=== PATIENT | male | born 1935 | race Caucasian/White ===

== ENCOUNTER → 2020-08-29 | Outpatient (CLI) | payer MEDICARE, OTHER ==
[2020-08-29 12:15] LABS: African American GFR (CKD) >90 (>60 ml/min/1.73 sqM); Blood Urea Nitrogen 22 mg/dL (9-20); Non-African American GFR(CKD) 84 (>60 ml/min/1.73 sqM)
--- NOTE | 2020-08-29 14:34 | CT ---
EXAMINATION TYPE: CT abdomen pelvis w con DATE OF EXAM: 08/29/2020 COMPARISON: None. HISTORY: follow up prostate cancer CT DLP: 355.4 mGycm, Automated Exposure Control for Dose Reduction was Utilized. CONTRAST: CT scan of the abdomen and pelvis is performed with oral and with IV Contrast, patient injected with 100 mL of Isovue 300. FINDINGS: LUNG BASES: Cardiomegaly with dual lead pacemaker is partially imaged. There is moderate right atrial dilatation partially imaged.. LIVER/GB: Occasional punctate calcification and thin-walled cysts scattered throughout the liver. PANCREAS: Generalized atrophy with glandular calcifications consistent with product of chronic pancre atitis. SPLEEN: Scattered punctate calcifications throughout the spleen as well as 1.9 cm thin-walled partial ly exophytic cyst lateral upper aspect of spleen. ADRENALS: No significant abnormality is seen. KIDNEYS: Symmetric cortical medullary uptake and excretion without hydronephrosis seen bilaterally. BOWEL: Large hiatal hernia or fixed intrathoracic stomach partially imaged. Oral contrast reaches lev el of the ileal loops in the right abdomen. Small bowel feces sign. No suspicious small bowel dilatat ion to suggest obstruction. Fecal material seen in nondistended colon. PROSTATE/SEMINAL VESICLES: There are 3 gold therapy seeds scattered throughout prostate gland which i s normal in size. LYMPH NODES: No greater than 1cm abdominal or pelvic lymph nodes are appreciated. OSSEOUS STRUCTURES: Metallic artifact from left hip arthroplasty causes streak artifact limiting eval uation of pelvic structures. Grade 1 retrolisthesis L5 on S1. Moderate to severe disc space narrowing with sclerosis and spurring left L5-S1 level. Vacuum disc phenomenon at this level. Grade 1 anteroli sthesis L4 on L5 with mild disc space narrowing and vacuum disc phenomenon. There are 2 suspicious sc lerotic lesions in the L1 vertebra and single lesion in the left inferior T12 vertebra . There are a dditional scattered small sclerotic lesions throughout the pelvis including sacrum where there is mor e diffuse sclerotic lesions present as well as left iliac bone where there are several sclerotic foci of sclerotic areas present. There is sclerosis consistent with subacute mild to moderate compression type fracture involving the superior T11 endplate. OTHER: Mild to moderate mixed plaque in aorta extends into branch vessels. IMPRESSION: Osseous sclerotic metastatic disease as detailed above. Suspect subacute or healing compr ession type fracture T11 vertebra. No suspicious mass or adenopathy otherwise seen.
--- NOTE | 2020-08-29 22:10 | NM ---
EXAMINATION TYPE: NM bone scan whole body DATE OF EXAM: 08/29/2020 COMPARISON: CT abdomen and pelvis earlier today. HISTORY: Prostate cancer. Delayed whole-body scanning was performed following the injection of 22.1 mCi Tc 99m MDP. Images acq uired 3 hours post injection. Whole body images in anterior and posterior projection along with addit ional spot images of the thorax abdomen and pelvis. FINDINGS: Corresponding to CT there is increased radiotracer uptake in the left iliac bone corresponding to the dominant sclerotic area near sacroiliac joint. Smaller sclerotic foci on CT less well seen on bone s can. There is horizontal increased radiotracer uptake corresponding to the subacute mild to moderate compr ession type fracture at the T11 vertebra. Subtle increased radiotracer uptake right L3 level correspo nds to larger lateral sclerotic lesion on image 56. Smaller sclerotic lesion on CT less well seen on bone scan. There is lucency from left hip prosthesis noted. Increased radiotracer uptake left roughly T3 level l ikely corresponds to sclerotic osseous metastatic lesion. Normal excretion bilaterally. IMPRESSION: Sclerotic osseous metastatic disease as detailed above.
== END | disposition home or self-care (01) ==
LOC: RADNMMAIN 11:24
PROVIDERS: ATTEND Urology
DX: C61 Malignant neoplasm of prostate (principal); C79.51 Secondary malignant neoplasm of bone; Z88.0 Allergy status to penicillin
CPT/HCPCS: 82565; 84520; 74177; 36415; 78306; A9503; Q9967

== ENCOUNTER 2020-10-14 20:50 | Inpatient (IN) | payer MEDICARE, OTHER ==
[2020-10-14] MEDS ORDERED: ASPIRIN 81 MG PO STA (21:16)
[2020-10-14 21:24] LABS: Basophils % (A) 1 %; Eosinophils # (A) 0.3 k/uL (0-0.7); Eosinophils % (A) 7 %; HGB 13.1 gm/dL (13.0-17.5); Lymphocytes % (A) 22 %; MCH 35.5 pg (25.0-35.0); MCHC 33.6 g/dL (31.0-37.0); MCV 105.8 fL (80.0-100.0); Macrocytosis Moderate; Mean Platelet Volume 7.3; Monocytes # (A) 0.4 k/uL (0-1.0); Monocytes % (A) 10 %; Neutrophils # (A) 2.5 k/uL (1.3-7.7); Neutrophils % (A) 57 %; Platelet Count 269 k/uL (150-450); RBC 3.69 m/uL (4.30-5.90); RDW 14.3 % (11.5-15.5); WBC 4.4 k/uL (3.8-10.6)
[2020-10-14 21:32] LABS: Partial Thromboplastin Time 23.7 sec (22.0-30.0); Prothrombin Time 10.4 sec (9.0-12.0)
[2020-10-14 21:34] LABS: ALT 15 U/L (4-49); AST 33 U/L (17-59); African American GFR (CKD) >90 (>60 ml/min/1.73 sqM); Albumin 3.6 g/dL (3.5-5.0); Alkaline Phosphatase 106 U/L (38-126); Anion Gap 9 mmol/L; Blood Urea Nitrogen 38 mg/dL (9-20); Calcium 9.5 mg/dL (8.4-10.2); Carbon Dioxide 22 mmol/L (22-30); Chloride 104 mmol/L (98-107); Glucose 107 mg/dL (74-99); Lipase 40 U/L (23-300); Magnesium 1.7 mg/dL (1.6-2.3); Non-African American GFR(CKD) 83 (>60 ml/min/1.73 sqM); Potassium 4.6 mmol/L (3.5-5.1); Sodium 135 mmol/L (137-145); Total Bilirubin 0.2 mg/dL (0.2-1.3); Total Protein 6.8 g/dL (6.3-8.2)
--- NOTE | 2020-10-14 21:51 | XR ---
EXAMINATION TYPE: XR chest 2V DATE OF EXAM: 10/14/2020 COMPARISON: 05/05/2014. HISTORY: Chest pain. TECHNIQUE: Frontal and lateral views of the chest are obtained. FINDINGS: There is no focal air space opacity, pleural effusion, or pneumothorax seen. The cardiac silhouette size is enlarged. Left pacemaker is stable. No acute abnormality. Chronic appearing lower thoracic spine compression deformity seen. IMPRESSION: No acute cardiopulmonary process.
--- NOTE | 2020-10-14 22:07 | ED ---
General Adult HPI - General Chief complaint: Chest Pain Stated complaint: Chest pain Time Seen by Provider: 10/14/20 20:59 Source: patient Mode of arrival: wheelchair Limitations: no limitations - History of Present Illness Initial comments: 84 year-old male patient presents to the emergency department accompanied by caregiver for chest pain. Chest pain started around 6pm. Resolved after 1.5 hours. Denies any associated symptoms including shortness of breath, sweats, nausea, or vomiting. States he did have some pain and tenderness to the left axilla. He denies any cough or congestion. Does have a ventricular pace maker. Denies history of [place]. Does take Eliquis 2.5mg BID. Patient denies any recent fever, chills, cough, abdominal pain, diarrhea, constipation, back pain, numbness, tingling, dizziness, weakness, hematuria, dysuria, urinary urgency, urinary frequency, headache, visual changes, or any other complaints. - Related Data Home Medications Medication Instructions Recorded Confirmed Furosemide [Lasix] 40 mg PO DAILY 02/01/14 05/04/14 Warfarin [Coumadin] 2.5 tab PO W/SUPPER 02/01/14 05/04/14 carvediloL [Coreg] 3.125 tab PO BID 02/01/14 05/04/14 lisinopriL [Zestril] 10 mg PO DAILY 02/01/14 05/04/14 Prilosec(Dose Unknown) 1 tab PO DAILY 04/30/14 05/04/14 NIFEdipine [NIFEdipine XL] 30 mg PO DAILY 05/04/14 05/04/14 Allergies Allergy/AdvReac Type Severity Reaction Status Date / Time Penicillins Allergy Unknown Verified 10/14/20 20:57 Review of Systems ROS Statement: Those systems with pertinent positive or pertinent negative responses have been documented in the HPI. ROS Other: All systems not noted in ROS Statement are negative. Past Medical History Past Medical History: Cancer, GERD/Reflux, Osteoarthritis (OA), Pneumonia Additional Past Medical History / Comment(s): see Dr Robertson H&P, hx prostate and skin cancer, pneumonia 02/2014 History of Any Multi-Drug Resistant Organisms: None Reported Past Surgical History: Hernia Repair, Pacemaker, Prostate Surgery Past Anesthesia/Blood Transfusion Reactions: No Reported Reaction Additional Past Anesthesia/Blood Transfusion Reaction / Comment(s): unknown family hx from child caregiver Type of Cardiac Device: Permanent Pacemaker Device Placement Date:: unknown Past Psychological History: No Psychological Hx Reported Smoking Status: Never smoker Past Alcohol Use History: None Reported Past Drug Use History: None Reported General Exam Limitations: no limitations General appearance: alert, in no apparent distress, other (Physical well- developed, well-nourished adult male patient in no acute distress. Vital signs upon presentation temperature 97.4F, pulse 89, respirations 20, blood pressure 144/76, pulse ox 95% on room air.) ENT exam: Present: normal exam, normal oropharynx, mucous membranes moist Respiratory exam: Present: normal lung sounds bilaterally. Absent: respiratory distress, wheezes, rales, rhonchi, stridor Cardiovascular Exam: Present: regular rate, normal rhythm, normal heart sounds. Absent: systolic murmur, diastolic murmur, rubs, gallop, clicks GI/Abdominal exam: Present: soft, normal bowel sounds. Absent: distended, tenderness, guarding, rebound, rigid Neurological exam: Present: alert, oriented X3, CN II-XII intact Psychiatric exam: Present: normal affect, normal mood Skin exam: Present: warm, dry, intact, normal color. Absent: rash Course Vital Signs 10/14/20 20:52 Temperature 97.4 F L Pulse Rate 89 Respiratory 20 Rate Blood Pressure 144/76 O2 Sat by Pulse 95 Oximetry EKG Findings - EKG Comments: EKG Findings:: EKG obtained at 2105 shows ventricular paced rhythm at the rate of 68, QR yarsanism 158, QTC 464, QTC 493. No evidence of clinically significant ST elevation or depression. Medical Decision Making - Medical Decision Making 84-year-old male patient presents to the emergency department today for evaluation of left-sided chest pain lasted about an hour and a half at home. No associated symptoms. EKG showed ventricular paced rhythm with no clinical significant ST elevation or depression. Labs reviewed and did reveal elevated t roponin 0.052. Patient was given a dose of aspirin here. He does take Eliquis. He'll be admitted to the hospital for serial troponins and further evaluation by cardiology. Nothing by mouth at midnight. Patient agreeable with this plan. Discuss with my attending Dr. Stiles. - Lab Data Result diagrams: 10/14/20 21:16 10/14/20 21:16 Lab Results 07/10/14/20 10/14/20 Range/Units 21:16 21:16 21:16 WBC 4.4 (3.8-10.6) k/uL RBC 3.69 L (4.30-5.90) m/uL Hgb 13.1 (13.0-17.5) gm/dL Hct 39.0 (39.0-53.0) % MCV 105.8 H (80.0-100.0) fL MCH 35.5 H (25.0-35.0) pg MCHC 33.6 (31.0-37.0) g/dL RDW 14.3 (11.5-15.5) % Plt Count 269 (150-450) k/uL MPV 7.3 Neutrophils % 57 % Lymphocytes % 22 % Monocytes % 10 % Eosinophils % 7 % Basophils % 1 % Neutrophils # 2.5 (1.3-7.7) k/uL Lymphocytes # 1.0 (1.0-4.8) k/uL Monocytes # 0.4 (0-1.0) k/uL Eosinophils # 0.3 (0-0.7) k/uL Basophils # 0.0 (0-0.2) k/uL Macrocytosis Moderate PT 10.4 (9.0-12.0) sec INR 1.0 (<1.2) APTT 23.7 (22.0-30.0) sec Sodium 135 L (137-145) mmol/L Potassium 4.6 (3.5-5.1) mmol/L Chloride 104 (98-107) mmol/L Carbon Dioxide 22 (22-30) mmol/L Anion Gap 9 mmol/L BUN 38 H (9-20) mg/dL Creatinine 0.76 (0.66-1.25) mg/dL Est GFR (CKD-EPI)AfAm >90 (>60 ml/min/1.73 sqM) Est GFR (CKD-EPI)NonAf 83 (>60 ml/min/1.73 sqM) Glucose 107 H (74-99) mg/dL Calcium 9.5 (8.4-10.2) mg/dL Magnesium 1.7 (1.6-2.3) mg/dL Total Bilirubin 0.2 (0.2-1.3) mg/dL AST 33 (17-59) U/L ALT 15 (4-49) U/L Alkaline Phosphatase 106 (38-126) U/L Troponin I (0.000-0.034) ng/mL Total Protein 6.8 (6.3-8.2) g/dL Albumin 3.6 (3.5-5.0) g/dL Lipase 40 (23-300) U/L 10/14/20 Range/Units 21:16 WBC (3.8-10.6) k/uL RBC (4.30-5.90) m/uL Hgb (13.0-17.5) gm/dL Hct (39.0-53.0) % MCV (80.0-100.0) fL MCH (25.0-35.0) pg MCHC (31.0-37.0) g/dL RDW (11.5-15.5) % Plt Count (150-450) k/uL MPV Neutrophils % % Lymphocytes % % Monocytes % % Eosinophils % % Basophils % % Neutrophils # (1.3-7.7) k/uL Lymphocytes # (1.0-4.8) k/uL Monocytes # (0-1.0) k/uL Eosinophils # (0-0.7) k/uL Basophils # (0-0.2) k/uL Macrocytosis PT (9.0-12.0) sec INR (<1.2) APTT (22.0-30.0) sec Sodium (137-145) mmol/L Potassium (3.5-5.1) mmol/L Chloride (98-107) mmol/L Carbon Dioxide (22-30) mmol/L Anion Gap mmol/L BUN (9-20) mg/dL Creatinine (0.66-1.25) mg/dL Est GFR (CKD-EPI)AfAm (>60 ml/min/1.73 sqM) Est GFR (CKD-EPI)NonAf (>60 ml/min/1.73 sqM) Glucose (74-99) mg/dL Calcium (8.4-10.2) mg/dL Magnesium (1.6-2.3) mg/dL Total Bilirubin (0.2-1.3) mg/dL AST (17-59) U/L ALT (4-49) U/L Alkaline Phosphatase (38-126) U/L Troponin I 0.052 H* (0.000-0.034) ng/mL Total Protein (6.3-8.2) g/dL Albumin (3.5-5.0) g/dL Lipase (23-300) U/L - Radiology Data Radiology results: report reviewed, image reviewed Two-view x-ray of the chest is obtained. Report was reviewed in its entirety. Impression by Dr. Melgar shows no acute cardiopulmonary process. Disposition Clinical Impression: NSTEMI (non-ST elevated myocardial infarction) Disposition: ADMITTED IP TO THIS [facility] Condition: Serious Referrals: Levon Ching MD [Primary Care Provider] - 1-2 days Decision to Admit Reason: Admit from EC Decision Date: 10/14/20 Decision Time: 22:18
[2020-10-14] MEDS ORDERED: NITROGLYCERIN SL TABS 0.4 MG TAB SUBLINGUAL PRN (22:16)
[2020-10-14] MEDS ORDERED: ACETAMINOPHEN TAB 500 MG TAB PO PRN (23:17)
[2020-10-14] MEDS: METOPROLOL TARTRATE 12.5 MG TAB PO SCH (23:52)
[2020-10-14] MEDS: ATORVASTATIN 40 MG TAB PO SCH (23:53)
[2020-10-14] MEDS: APIXABAN 2.5 MG TABLET PO SCH (23:53)
[2020-10-14] MEDS: carvediloL 3.125 MG TAB PO SCH (23:53)
[2020-10-15 05:54] LABS: ALT 14 U/L (4-49); AST 33 U/L (17-59); African American GFR (CKD) >90 (>60 ml/min/1.73 sqM); Albumin 3.2 g/dL (3.5-5.0); Alkaline Phosphatase 107 U/L (38-126); Anion Gap 6 mmol/L; Blood Urea Nitrogen 32 mg/dL (9-20); Calcium 9.2 mg/dL (8.4-10.2); Carbon Dioxide 24 mmol/L (22-30); Chloride 106 mmol/L (98-107); Glucose 94 mg/dL (74-99); Non-African American GFR(CKD) >90 (>60 ml/min/1.73 sqM); Potassium 4.3 mmol/L (3.5-5.1); Sodium 136 mmol/L (137-145); Total Bilirubin 0.2 mg/dL (0.2-1.3); Total Protein 6.4 g/dL (6.3-8.2)
[2020-10-15 06:05] LABS: Basophils % (A) 1 %; Eosinophils # (A) 0.3 k/uL (0-0.7); Eosinophils % (A) 6 %; HCT 39.4 % (39.0-53.0); HGB 12.9 gm/dL (13.0-17.5); Lymphocytes # (A) 1.1 k/uL (1.0-4.8); Lymphocytes % (A) 24 %; MCH 35.1 pg (25.0-35.0); MCHC 32.8 g/dL (31.0-37.0); MCV 106.9 fL (80.0-100.0); Macrocytosis Moderate; Mean Platelet Volume 7.6; Monocytes # (A) 0.4 k/uL (0-1.0); Monocytes % (A) 10 %; Neutrophils # (A) 2.6 k/uL (1.3-7.7); Neutrophils % (A) 57 %; Platelet Count 216 k/uL (150-450); RBC 3.68 m/uL (4.30-5.90); RDW 13.2 % (11.5-15.5); WBC 4.5 k/uL (3.8-10.6)
[2020-10-15] MEDS ORDERED: ASPIRIN 325 MG TAB PO SCH (09:00)
[2020-10-15] MEDS: CALCIUM CARB-VIT D 500 MG-5 MCG TAB PO SCH (09:08)
[2020-10-15] MEDS: METOPROLOL TARTRATE 12.5 MG TAB PO SCH (09:08)
[2020-10-15] MEDS: FUROSEMIDE 20 MG TAB PO SCH (09:08)
[2020-10-15] MEDS: ISOSORBIDE MONONITRATE ER 30 MG TAB.ER.24H PO SCH (09:08)
[2020-10-15] MEDS: diphenhydrAMINE 25 MG CAP PO SCH ×2 (09:08→21:09)
[2020-10-15] MEDS: lisinopriL 10 MG TAB PO SCH (09:08)
[2020-10-15] MEDS: FERROUS SULFATE 325 MG TAB PO SCH ×2 (09:09→21:09)
[2020-10-15] MEDS: ASPIRIN 81 MG PO SCH (09:09)
[2020-10-15] MEDS: NON FORMULARY DRUG (Enzalutamide [Xtandi] 40 MG Capsule) PO SCH ×4 (09:09→21:13)
[2020-10-15] MEDS: OXYBUTYNIN CHLORIDE 5 MG TAB PO SCH ×2 (09:09→21:09)
[2020-10-15] MEDS: APIXABAN 2.5 MG TABLET PO SCH ×2 (09:09→21:09)
[2020-10-15] MEDS: MULTIVITAMINS, THERA 1 EACH TAB PO SCH (09:09)
[2020-10-15] MEDS: carvediloL 3.125 MG TAB PO SCH ×2 (09:09→21:09)
[2020-10-15] MEDS: CLOPIDOGREL 75 MG TAB PO SCH (09:09)
[2020-10-15 10:21] LABS: Chol/HDL Ratio 3.26; Cholesterol 124 mg/dL (0-200)
--- NOTE | 2020-10-15 12:54 | P.CRDCN ---
History of Present Illness History of present illness: HISTORY OF PRESENTING ILLNESS Patient is a pleasant 84-year-old male with history of hypertension, hyperlipidemia, atrial flutter status post ablation, complete heart block status post dual-chamber permament pacemaker as well as His bundle pacing, and reported CAD status post 3 stents who presents secondary chest pain. Patient states he lives with a caregiver however is normally fairly functional. He normally follows with Dr. Arguello and states he had been doing fairly well up until y when he had a few hours of chest pain. Chest pain occurred while he was sitting and not doing anything. It lasted for approximately 2 hours and then resolved. Apparently was gone by the time he reached the emergency department. He denies any associated nausea, diaphoresis or shortness breath. He has had no recurrence. He has not taken any nitroglycerin for this. He believes he had 3 stents placed down in [place] approximately 2-3 years ago. He has been on the Eliquis as well as Plavix without any hematochezia or melena. He does have some mild issues with recall however for the most part is able to describe his medical history. Blood work shows white blood cell count 4.4, h emoglobin 13.1, platelets 269, troponin 0.05, 0.06, 0.048, BUN 38, creatinine 0.76, total cholesterol 124, LDL 64, HDL 38. EKG shows ventricular paced rhythm with atrial sensed. REVIEW OF SYSTEMS At the time of my exam: CONSTITUTIONAL: Denies fever or chills. CARDIOVASCULAR: +chest pain, no shortness of breath, orthopnea, PND or palpitations. RESPIRATORY: Denies cough. GASTROINTESTINAL: Denies abdominal pain, diarrhea, constipation, nausea or vomiting. MUSCULOSKELETAL: Denies myalgias. NEUROLOGIC: Denies numbness, tingling or weakness. ENDOCRINE: Denies fatigue, weight change, polydipsia or polyurina. GENITOURINARY: Denies burning, hematuria or urgency with micturation. HEMATOLOGIC: Denies history of anemia or bleeding. PHYSICAL EXAMINATION Vital signs reviewed. CONSTITUTIONAL: No apparent distress. HEENT: Head is normocephalic. Pupils are equal, round. Sclerae anicteric. Mucous membranes of the mouth are moist. No JVD. No carotid bruit. CHEST EXAMINATION: Lungs are clear to auscultation. No chest wall tenderness is noted on palpation or with deep breathing. HEART EXAMINATION: Regular rate and rhythm. S1, S2 heard. No murmurs, gallops or rub. ABDOMEN: Soft, nontender. Positive bowel sounds. EXTREMITIES: 2+ peripheral pulses, no lower extremity edema and no calf tendern ess. NEUROLOGIC EXAMINATION: Patient is awake, alert ASSESSMENT 1. Chest pain with elevated troponins. Rule out non-STEMI versus chronically elevated troponins 2. Reported coronary artery disease status post stenting approximately 3 years ago in [place] 3. Essential hypertension 4. History of atrial flutter status post ablation, atrial fibrillation on anticoagulation 5. Sick sinus syndrome status post dual-chamber permanent pacemaker, his bundle placing 6. Mild anemia 7. Mild dementia PLAN We will obtain records from office to evaluate prior history of CAD. Patient's chest pain is not classic however he admits to similar prior episodes with prior stenting approximately 2-3 years ago. Additionally blood work shows mildly elevated troponins. We will check 2-D echo to evaluate for left ventricular function. Discussed possible medical therapy versus ischemic workup and patient would like to get to the vomitus as he had been doing fairly well. We will check a Lexiscan stress test to further risk stratify on Saturday. Past Medical History Past Medical History: Cancer, Heart Failure, GERD/Reflux, Osteoarthritis (OA), Pneumonia Additional Past Medical History / Comment(s): see Dr Robertson H&P, hx prostate and skin cancer, pneumonia 02/2014 History of Any Multi-Drug Resistant Organisms: None Reported Past Surgical History: Hernia Repair, Pacemaker, Prostate Surgery Past Anesthesia/Blood Transfusion Reactions: No Reported Reaction Additional Past Anesthesia/Blood Transfusion Reaction / Comment(s): unknown family hx from care management assistant Type of Cardiac Device: Permanent Pacemaker Device Placement Date:: unknown Past Psychological History: No Psychological Hx Reported Smoking Status: Never smoker Past Alcohol Use History: None Reported Past Drug Use History: None Reported Medications and Allergies Home Medications Medication Instructions Recorded Confirmed Type carvediloL [Coreg] 3.125 tab PO BID 02/01/14 10/14/20 History lisinopriL [Zestril] 10 mg PO DAILY 02/01/14 10/14/20 History Acetaminophen Tab [Tylenol Tab] 500 mg PO Q6H PRN 10/14/20 10/14/20 History Albuterol Sulfate [Ventolin HFA] 1 - 2 puff INHALATION RT-Q6H PRN 10/14/20 10/14/20 History Apixaban [Eliquis] 2.5 mg PO BID 10/14/20 10/14/20 History Aspirin EC [Ecotrin Low Dose] 81 mg PO DAILY 10/14/20 10/14/20 History Atorvastatin Calcium [Lipitor] 40 mg PO HS 10/14/20 10/14/20 History Bebeto/D3/Mag11/Zinc/Stopperer Assembler/Kaleb/Bor 1 tab PO DAILY 10/14/20 10/14/20 History [Caltrate 600+D Plus Tablet] Clopidogrel [Plavix] 75 mg PO DAILY 10/14/20 10/14/20 History Enzalutamide [Xtandi] 40 mg PO QID 10/14/20 10/14/20 History Ferrous Sulfate [Feosol] 325 mg PO BID 10/14/20 10/14/20 History Furosemide [Lasix] 20 mg PO DAILY 10/14/20 10/14/20 History Isosorbide Mononitrate ER [Imdur] 30 mg PO DAILY 10/14/20 10/14/20 History Metoprolol Tartrate [Lopressor] 12.5 mg PO BID 10/14/20 10/14/20 History Multivitamins, Thera [Multivitamin 1 tab PO DAILY 10/14/20 10/14/20 History (formulary)] Oxybutynin Chloride 2.5 mg PO BID 10/14/20 10/14/20 History diphenhydrAMINE [Benadryl] 25 mg PO BID 10/14/20 10/14/20 History Allergies Allergy/AdvReac Type Severity Reaction Status Date / Time Penicillins Allergy Unknown Verified 10/14/20 20:57 Physical Exam Vitals: Vital Signs Temp Pulse Pulse Resp BP BP Pulse Ox 10/15/20 08:00 98.0 F 61 18 146/75 96 10/15/20 04:00 97.7 F 68 16 144/76 98 10/14/20 23:55 98.7 F 60 16 165/82 97 10/14/20 22:29 61 18 150/82 96 10/14/20 22:24 98.7 F 60 18 161/81 98 10/14/20 20:52 97.4 F L 89 20 144/76 95 Intake and Output 10/14/20 10/15/20 10/15/20 22:59 06:59 14:59 Output Total 100 Balance -100 Output: Urine 100 Other: Voiding Method Urinal Urinal # Voids 1 Weight 57.153 kg 57 kg Results 10/15/20 05:27 10/15/20 05:27 Cardiac Enzymes 10/14/20 10/14/20 10/15/20 Range/Units 21:16 21:16 00:36 AST 33 (17-59) U/L Troponin I 0.052 H* 0.064 H* (0.000-0.034) ng/mL 10/15/20 10/15/20 Range/Units 05:27 05:27 AST 33 (17-59) U/L Troponin I 0.048 H* (0.000-0.034) ng/mL Coagulation 10/14/20 Range/Units 21:16 PT 10.4 (9.0-12.0) sec APTT 23.7 (22.0-30.0) sec Lipids 10/15/20 Range/Units 05:27 Triglycerides 110.0 (0.0-149.0) mg/dL Cholesterol 124 (0-200) mg/dL HDL Cholesterol 38.0 L (40.0-60.0) mg/dL Cholesterol/HDL Ratio 3.26 CBC 10/14/20 10/15/20 Range/Units 21:16 05:27 WBC 4.4 4.5 (3.8-10.6) k/uL RBC 3.69 L 3.68 L (4.30-5.90) m/uL Hgb 13.1 12.9 L (13.0-17.5) gm/dL Hct 39.0 39.4 (39.0-53.0) % Plt Count 269 216 (150-450) k/uL Comprehensive Metabolic Panel 10/14/20 10/15/20 Range/Units 21:16 05:27 Sodium 135 L 136 L (137-145) mmol/L Potassium 4.6 4.3 (3.5-5.1) mmol/L Chloride 104 106 (98-107) mmol/L Carbon Dioxide 22 24 (22-30) mmol/L BUN 38 H 32 H (9-20) mg/dL Creatinine 0.76 0.62 L (0.66-1.25) mg/dL Glucose 107 H 94 (74-99) mg/dL Calcium 9.5 9.2 (8.4-10.2) mg/dL AST 33 33 (17-59) U/L ALT 15 14 (4-49) U/L Alkaline Phosphatase 106 107 (38-126) U/L Total Protein 6.8 6.4 (6.3-8.2) g/dL Albumin 3.6 3.2 L (3.5-5.0) g/dL Current Medications Generic Name Dose Route Start Last Admin Trade Name Freq PRN Reason Stop Dose Admin Acetaminophen 500 mg 10/14/20 23:17 Acetaminophen Tab 500 Mg Tab PO Q6H PRN Pain Apixaban 2.5 mg 10/14/20 23:30 10/15/20 09:09 Apixaban 2.5 Mg Tablet PO 2.5 mg BID BENJAMÍN Administration Protocol Aspirin 81 mg 10/15/20 09:00 10/15/20 09:09 Aspirin 81 Mg PO 81 mg DAILY BENJAMÍN Administration Atorvastatin Calcium 40 mg 10/14/20 23:30 10/14/20 23:53 Atorvastatin 40 Mg Tab PO 40 mg HS BENJAMÍN Administration Calcium Carbonate 1 each 10/15/20 09:00 10/15/20 09:08 Calcium Carb-Vit D 500 Mg-5 Mcg Tab PO 1 each DAILY BENJAMÍN Administration Carvedilol 3.125 mg 10/14/20 23:30 10/15/20 09:09 Carvedilol 3.125 Mg Tab PO 3.125 mg BID BENJAMÍN Administration Clopidogrel Bisulfate 75 mg 10/15/20 09:00 10/15/20 09:09 Clopidogrel 75 Mg Tab PO 75 mg DAILY BENJAMÍN Administration Diphenhydramine HCl 25 mg 10/15/20 09:00 10/15/20 09:08 Diphenhydramine 25 Mg Cap PO 25 mg BID BENJAMÍN Administration Ferrous Sulfate 325 mg 10/15/20 09:00 10/15/20 09:09 Ferrous Sulfate 325 Mg Tab PO 325 mg BID BENJAMÍN Administration Furosemide 20 mg 10/15/20 09:00 10/15/20 09:08 Furosemide 20 Mg Tab PO 20 mg DAILY BENJAMÍN Administration Isosorbide Mononitrate 30 mg 10/15/20 09:00 10/15/20 09:08 Isosorbide Mononitrate Er 30 Mg Tab.Er.24h PO 30 mg DAILY BENJAMÍN Administration Lisinopril 10 mg 10/15/20 09:00 10/15/20 09:08 Lisinopril 10 Mg Tab PO 10 mg DAILY BENJAMÍN Administration Metoprolol Tartrate 12.5 mg 10/14/20 23:30 10/15/20 09:08 Metoprolol Tartrate 12.5 Mg Tab PO 12.5 mg BID BENJAMÍN Administration Multivitamins 1 each 10/15/20 09:00 10/15/20 09:09 Multivitamins, Thera 1 Each Tab PO 1 each DAILY BENJAMÍN Administration Nitroglycerin 0.4 mg 10/14/20 22:16 Nitroglycerin Sl Tabs 0.4 Mg Tab SUBLINGUAL Q5M PRN Chest Pain Non-Formulary Medication 40 mg 10/15/20 09:00 10/15/20 09:09 Enzalutamide [Xtandi] PO Not Given QID BENJAMÍN Oxybutynin Chloride 2.5 mg 10/15/20 09:00 10/15/20 09:09 Oxybutynin Chloride 5 Mg Tab PO 2.5 mg BID BENJMAÍN Administration Intake and Output 10/14/20 10/15/20 10/15/20 22:59 06:59 14:59 Output Total 100 Balance -100 Output: Urine 100 Other: Voiding Method Urinal Urinal # Voids 1 Weight 57.153 kg 57 kg 10/15/20 05:27 10/15/20 05:27
--- NOTE | 2020-10-15 14:17 | P.HPIM ---
History of Present Illness H&P Date: 10/15/20 84 years old male poor historian under the care of a caregiver with past medical history of hypertension, hyperlipidemia and stroke with problem flutter s/p ablation, atrial fibrillation, sick sinus syndrome status post permanent pacemaker, history of coronary artery disease with previous stenting, history of prostate cancer and skin cancer comes in with chest pain. Patient is a poor historian but states that the chest pain started yesterday while patient was sitting down and not doing anything. It lasted 2 hours and was gone by the time patient came to the ER. He denies any history of shortness of breath or radiation of the pain. Patient denies any nausea, vomiting, diarrhea or abdominal pain.Tried calling the caregiver to provide more history but no contact would be made In the ER, EKG was performed which showed ventricular paced rhythm rate of [address] segment elevation or depression. Troponin was mildly elevated at 0.052. Labs were reviewed patient has a hemoglobin of 13 on admission with MCV 105.8 sodium 135 creatinine 0.78 BUN 38 Leukos 107 creatinine elevated to 0.64 followed by 0.048 BNP 2250 lipase is normal chest x-ray was obtained which was negative for any acute findings. Cardiology was consulted Review of system Constitutional: No fevers, chills and weight loss. HENT: Negative. Negative for hearing loss. Eyes: Negative. Respiratory: No cough, shortness of breath or hemoptysis. No sputum production and wheezing. Cardiovascular: No chest pain, palpitations, orthopnea, claudication and PND. No swelling of feet Gastrointestinal: Negative for nausea, vomiting and melena. Genitourinary: Negative for urgency and frequency. Musculoskeletal: Negative for myalgias and neck pain. Skin: Negative. Negative for itching and rash. Neurological: Negative for headaches. Psychiatric/Behavioral: Negative for depression Social History Patient is a non-smoker nondrinker lives by himself. He has a caregiver who lives 1 floor above him and takes care of his medications and his appointments Family history No significant family history. Physical exam CONSTITUTIONAL: Patient appears comfortable in no apparent distress. NECK: No JVD or lymph node enlargement. HEET: Unremarkable, conjunctivae/corneas clear. Sclera anicteric. Oral cavity no lesions. RESPIRATORY: Clear to auscultation bilaterally. CARDIOVASCULAR: Regular rate and rhythm. No murmur or gallop or rub GASTROINTESTINAL: soft, non tender, no organomegaly. Bowel sounds are positive. PSYCH: Denies any depression or anxiety. SKIN: No rashes NEUROLOGICAL: alert, oriented x 3, no focal deficits noted. Assessment and plan #1 acute substernal chest pain rule out acute coronary syndrome. Troponin slightly elevated. Echocardiogram ordered possible stress test on Saturday. 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 Follows Dr. Santana On enzalutamide 40 mg 3 times daily #7 possible underlying memory loss likely dementia #8 DVT prophylaxis on anticoagulation Eliquis #9 GI prophylaxis with Pepcid 20 mg p.o. 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 Type of Cardiac Device: Permanent Pacemaker Device Placement Date:: unknown Past Psychological History: No Psychological Hx Reported Smoking Status: Never smoker Past Alcohol Use History: None Reported Past Drug Use History: None Reported Medications and Allergies Home Medications Medication Instructions Recorded Confirmed Type carvediloL [Coreg] 3.125 tab PO BID 02/01/14 10/14/20 History lisinopriL [Zestril] 10 mg PO DAILY 02/01/14 10/14/20 History Acetaminophen Tab [Tylenol Tab] 500 mg PO Q6H PRN 10/14/20 10/14/20 History Albuterol Sulfate [Ventolin HFA] 1 - 2 puff INHALATION RT-Q6H PRN 10/14/20 10/14/20 History Apixaban [Eliquis] 2.5 mg PO BID 10/14/20 10/14/20 History Aspirin EC [Ecotrin Low Dose] 81 mg PO DAILY 10/14/20 10/14/20 History Atorvastatin Calcium [Lipitor] 40 mg PO HS 10/14/20 10/14/20 History Bebeto/D3/Mag11/Zinc/Grinding Wheel Facer/Kaleb/Bor 1 tab PO DAILY 10/14/20 10/14/20 History [Caltrate 600+D Plus Tablet] Clopidogrel [Plavix] 75 mg PO DAILY 10/14/20 10/14/20 History Enzalutamide [Xtandi] 40 mg PO QID 10/14/20 10/14/20 History Ferrous Sulfate [Feosol] 325 mg PO BID 10/14/20 10/14/20 History Furosemide [Lasix] 20 mg PO DAILY 10/14/20 10/14/20 History Isosorbide Mononitrate ER [Imdur] 30 mg PO DAILY 10/14/20 10/14/20 History Metoprolol Tartrate [Lopressor] 12.5 mg PO BID 10/14/20 10/14/20 History Multivitamins, Thera [Multivitamin 1 tab PO DAILY 10/14/20 10/14/20 History (formulary)] Oxybutynin Chloride 2.5 mg PO BID 10/14/20 10/14/20 History diphenhydrAMINE [Benadryl] 25 mg PO BID 10/14/20 10/14/20 History Allergies Allergy/AdvReac Type Severity Reaction Status Date / Time Penicillins Allergy Unknown Verified 10/14/20 20:57 Physical Exam Vitals: Vital Signs Temp Pulse Pulse Resp BP BP Pulse Ox 10/15/20 08:00 98.0 F 61 18 146/75 96 10/15/20 04:00 97.7 F 68 16 144/76 98 10/14/20 23:55 98.7 F 60 16 165/82 97 10/14/20 22:29 61 18 150/82 96 10/14/20 22:24 98.7 F 60 18 161/81 98 10/14/20 20:52 97.4 F L 89 20 144/76 95 Intake and Output 10/14/20 10/15/20 10/15/20 22:59 06:59 14:59 Output Total 100 Balance -100 Output: Urine 100 Other: Voiding Method Urinal Urinal # Voids 1 Weight 57.153 kg 57 kg Results CBC & Chem 7: 10/15/20 05:27 10/15/20 05:27 Labs: Abnormal Lab Results - Last 24 Hours (Table) 10/14/20 10/14/20 10/14/20 Range/Units 21:16 21:16 21:16 RBC 3.69 L (4.30-5.90) m/uL Hgb (13.0-17.5) gm/dL MCV 105.8 H (80.0-100.0) fL MCH 35.5 H (25.0-35.0) pg Sodium 135 L (137-145) mmol/L BUN 38 H (9-20) mg/dL Creatinine (0.66-1.25) mg/dL Glucose 107 H (74-99) mg/dL Troponin I 0.052 H* (0.000-0.034) ng/mL Albumin (3.5-5.0) g/dL 10/15/20 10/15/20 10/15/20 Range/Units 00:36 05:27 05:27 RBC (4.30-5.90) m/uL Hgb (13.0-17.5) gm/dL MCV (80.0-100.0) fL MCH (25.0-35.0) pg Sodium 136 L (137-145) mmol/L BUN 32 H (9-20) mg/dL Creatinine 0.62 L (0.66-1.25) mg/dL Glucose (74-99) mg/dL Troponin I 0.064 H* 0.048 H* (0.000-0.034) ng/mL Albumin 3.2 L (3.5-5.0) g/dL 10/15/20 Range/Units 05:27 RBC 3.68 L (4.30-5.90) m/uL Hgb 12.9 L (13.0-17.5) gm/dL MCV 106.9 H (80.0-100.0) fL MCH 35.1 H (25.0-35.0) pg Sodium (137-145) mmol/L BUN (9-20) mg/dL Creatinine (0.66-1.25) mg/dL Glucose (74-99) mg/dL Troponin I (0.000-0.034) ng/mL Albumin (3.5-5.0) g/dL Thrombosis Risk Factor Assmnt - Choose All That Apply Any of the Below Risk Factors Present?: No Other Risk Factors: Yes Each Risk Factor Represents 3 Points: Age 75 years or older Thrombosis Risk Factor Assessment Total Risk Factor Score: 3 Thrombosis Risk Factor Assessment Level: Moderate Risk
--- NOTE | 2020-10-15 17:48 | ECHOF ---
Referral Reason:re: LV function MEASUREMENTS -------- HEIGHT: 165.1 cm WEIGHT: 56.7 kg BP: RVIDd: 3.7 cm (< 3.3) IVSd: 1.3 cm (0.6 - 1.1) LVIDd: 3.7 cm (3.9 - 5.3) LVPWd: 1.3 cm (0.6 - 1.1) IVSs: 1.7 cm LVIDs: 2.4 cm LVPWs: 1.7 cm LA Diam: 4.0 cm (2.7 - 3.8) LAESV Index (A-L): 40.94 ml/m Ao Diam: 3.3 cm (2.0 - 3.7) AV Cusp: 1.8 cm (1.5 - 2.6) MV EXCURSION: 15.271 mm (> 18.000) MV EF SLOPE: 95 mm/s (70 - 150) EPSS: 0.5 cm MV E Baldomero: 0.91 m/s MV DecT: 137 ms MV A Baldomero: 0.45 m/s MV E/A Ratio: 2.02 RAP: 5.00 mmHg RVSP: 25.98 mmHg FINDINGS -------- Paced rhythm. This was a technically adequate study. The left ventricular size is normal. There is mild concentric left ventricular hypertrophy. Overa ll left ventricular systolic function is low-normal with, an EF between 50 - 55 %. Basal inferior L V wall motion is hypokinetic. The right ventricle is mild to moderately enlarged. LA is severely dilated >40 ml/m2 The right atrium is normal in size. Interatrial and interventricular septum intact. There is mild aortic valve sclerosis. There is trace mitral regurgitation. Mild tricuspid regurgitation present. Right ventricular systolic pressure is normal at < 35 mmHg. Trace/mild (physiologic) pulmonic regurgitation. The aortic root size is normal. Normal inferior vena cava with normal inspiratory collapse consistent with estimated right atrial pre ssure of 5 mmHg. There is no pericardial effusion. CONCLUSIONS -------- 1. The left ventricular size is normal. 2. There is mild concentric left ventricular hypertrophy. 3. Overall left ventricular systolic function is low-normal with, an EF between 50 - 55 %. 4. Basal inferior LV wall motion is hypokinetic. 5. The right ventricle is mild to moderately enlarged. 6. LA is severely dilated >40 ml/m2 7. There is mild aortic valve sclerosis. 8. There is trace mitral regurgitation. 9. Mild tricuspid regurgitation present. 10. Trace/mild (physiologic) pulmonic regurgitation. 11. There is no pericardial effusion. LICENSED PRACTICAL NURSE CLINIC NURSE: Grace Weber RDCS
[2020-10-15] MEDS: ATORVASTATIN 40 MG TAB PO SCH (21:09)
[2020-10-16] MEDS: OXYBUTYNIN CHLORIDE 5 MG TAB PO SCH ×2 (09:40→20:38)
[2020-10-16] MEDS: ASPIRIN 81 MG PO SCH (09:40)
[2020-10-16] MEDS: APIXABAN 2.5 MG TABLET PO SCH ×2 (09:40→20:38)
[2020-10-16] MEDS: MULTIVITAMINS, THERA 1 EACH TAB PO SCH (09:41)
[2020-10-16] MEDS: carvediloL 3.125 MG TAB PO SCH ×2 (09:41→20:38)
[2020-10-16] MEDS: diphenhydrAMINE 25 MG CAP PO SCH ×2 (09:41→20:38)
[2020-10-16] MEDS: CLOPIDOGREL 75 MG TAB PO SCH (09:41)
[2020-10-16] MEDS: FUROSEMIDE 20 MG TAB PO SCH (09:41)
[2020-10-16] MEDS: CALCIUM CARB-VIT D 500 MG-5 MCG TAB PO SCH (09:41)
[2020-10-16] MEDS: FERROUS SULFATE 325 MG TAB PO SCH ×2 (09:41→20:39)
[2020-10-16] MEDS: ISOSORBIDE MONONITRATE ER 30 MG TAB.ER.24H PO SCH (09:41)
[2020-10-16] MEDS: lisinopriL 10 MG TAB PO SCH (09:41)
[2020-10-16] MEDS: NON FORMULARY DRUG (Enzalutamide [Xtandi] 40 MG Capsule) PO SCH ×4 (09:41→20:39)
--- NOTE | 2020-10-16 12:28 | P.PN ---
Subjective HISTORY OF PRESENTING ILLNESS Patient is a pleasant 84-year-old male with history of hypertension, hyperlipidemia, atrial flutter status post ablation, complete heart block status post dual-chamber permament pacemaker as well as His bundle pacing, and reported CAD status post 3 stents who presents secondary chest pain. Patient states he lives with a caregiver however is normally fairly functional. He normally follows with Dr. Arguello and states he had been doing fairly well up until yesterday when he had a few hours of chest pain. Chest pain occurred while he was sitting and not doing anything. It lasted for approximately 2 hours and the n resolved. Apparently was gone by the time he reached the emergency department. He denies any associated nausea, diaphoresis or shortness breath. He has had no recurrence. He has not taken any nitroglycerin for this. He believes he had 3 stents placed down in [place] approximately 2-3 years ago. He has been on the Eliquis as well as Plavix without any hematochezia or melena. He does have some mild issues with recall however for the most part is able to describe his medical history. Blood work shows white blood cell count 4.4, hemoglobin 13.1, platelets 269, troponin 0.05, 0.06, 0.048, BUN 38, creatinine 0.76, total cholesterol 124, LDL 64, HDL 38. EKG shows ventricular paced rhythm with atrial sensed. 10/17 seen and examined. Patient denies any further episodes of chest pain. Echocardiogram performed which shows borderline ejection fraction 50-55%, inferior hypokinesis, severely dilated left atrium, mild mitral regurgitation. REVIEW OF SYSTEMS At the time of my exam: CONSTITUTIONAL: Denies fever or chills. CARDIOVASCULAR: +chest pain, no shortness of breath, orthopnea, PND or palpitations. RESPIRATORY: Denies cough. GASTROINTESTINAL: Denies abdominal pain, diarrhea, constipation, nausea or vomiting. MUSCULOSKELETAL: Denies myalgias. NEUROLOGIC: Denies numbness, tingling or weakness. ENDOCRINE: Denies fatigue, weight change, polydipsia or polyurina. GENITOURINARY: Denies burning, hematuria or urgency with micturation. HEMATOLOGIC: Denies history of anemia or bleeding. PHYSICAL EXAMINATION Vital signs reviewed. CONSTITUTIONAL: No apparent distress. HEENT: Head is normocephalic. Pupils are equal, round. Sclerae anicteric. Mucous membranes of the mouth are moist. No JVD. No carotid bruit. CHEST EXAMINATION: Lungs are clear to auscultation. No chest wall tenderness is noted on palpation or with deep breathing. HEART EXAMINATION: Regular rate and rhythm. S1, S2 heard. No murmurs, gallops or rub. ABDOMEN: Soft, nontender. Positive bowel sounds. EXTREMITIES: 2+ peripheral pulses, no lower extremity edema and no calf tenderness. NEUROLOGIC EXAMINATION: Patient is awake, alert ASSESSMENT 1. Chest pain with elevated troponins. Rule out non-STEMI versus chronically elevated troponins 2. Reported coronary artery disease status post stenting approximately 3 years ago in [place] 3. Essential hypertension 4. History of atrial flutter status post ablation, atrial fibrillation on anticoagulation 5. Sick sinus syndrome status post dual-chamber permanent pacemaker, his bundle placing 6. Mild anemia 7. Mild dementia PLAN No further chest pain episodes. Continue current regimen. Echocardiogram shows mildly decreased ejection fraction 50-55% with inferior hypokinesis. We will check a Lexiscan stress test to further risk stratify on Saturday. Objective - Vital Signs Vital signs: Vital Signs Temp 97.6 F 10/16/20 08:00 Pulse 63 10/16/20 11:55 Resp 16 10/16/20 11:55 BP 114/68 10/16/20 11:55 Pulse Ox 98 10/16/20 11:55 Intake & Output 10/15/20 10/16/20 10/16/20 18:59 06:59 18:59 Intake Total 480 240 Output Total 500 420 Balance -20 -420 240 Weight 57.5 kg Intake: Oral 480 240 Output: Urine 500 420 Other: Voiding Method Urinal Urinal Urinal # Voids 2 - Labs CBC & Chem 7: 10/15/20 05:27 10/15/20 05:27
--- NOTE | 2020-10-16 14:22 | P.PN ---
Subjective Progress Note Date: 10/16/20 84 years old male poor historian under the care of a caregiver with past medical history of hypertension, hyperlipidemia and stroke with problem flutter s/p ablation, atrial fibrillation, sick sinus syndrome status post permanent pacemaker, history of coronary artery disease with previous stenting, history of prostate cancer and skin cancer comes in with chest pain. Patient is a poor historian but states that the chest pain started yesterday while patient was sitting down and not doing anything. It lasted 2 hours and was gone by the time patient came to the ER. He denies any history of shortness of breath or radiation of the pain. Patient denies any nausea, vomiting, diarrhea or abdo viridiana pain.Tried calling the caregiver to provide more history but no contact would be made In the ER, EKG was performed which showed ventricular paced rhythm rate of [address] segment elevation or depression. Troponin was mildly elevated at 0.052. Labs were reviewed patient has a hemoglobin of 13 on admission with MCV 105.8 sodium 135 creatinine 0.78 BUN 38 Leukos 107 creatinine elevated to 0.64 followed by 0.048 BNP 2250 lipase is normal chest x- ray was obtained which was negative for any acute findings. Cardiology was consulted 10/16 Patient examined bedside. Patient denies any chest pain, shortness of breath, abdominal pain nausea or vomiting. He tolerated his diet well. Vitals reviewed patient is a 63 respiratory rate 16 blood pressure 114/68 patient seen by cardiology with plan to do a stress test versus cardiac cath tomorrow. Repeat labs in the morning Review of system Constitutional: No fevers, chills and weight loss. HENT: Negative. Negative for hearing loss. Eyes: Negative. Respiratory: No cough, shortness of breath or hemoptysis. No sputum production and wheezing. Cardiovascular: No chest pain, palpitations, orthopnea, claudication and PND. No swelling of feet Gastrointestinal: Negative for nausea, vomiting and melena. Genitourinary: Negative for urgency and frequency. Musculoskeletal: Negative for myalgias and neck pain. Skin: Negative. Negative for itching and rash. Neurological: Negative for headaches. Psychiatric/Behavioral: Negative for depression Physical exam CONSTITUTIONAL: Patient appears comfortable in no apparent distress. NECK: No JVD or lymph node enlargement. HEET: Unremarkable, conjunctivae/corneas clear. Sclera anicteric. Oral cavity no lesions. RESPIRATORY: Clear to auscultation bilaterally. CARDIOVASCULAR: Regular rate and rhythm. No murmur or gallop or rub GASTROINTESTINAL: soft, non tender, no organomegaly. Bowel sounds are positive. PSYCH: Denies any depression or anxiety. SKIN: No rashes NEUROLOGICAL: alert, oriented x 3, no focal deficits noted. Assessment and plan #1 acute substernal chest pain rule out acute coronary syndrome. Troponin slightly elevated. Echocardiogram ordered possible stress test on Saturday. 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 Follows Dr. Santana On enzalutamide 40 mg 3 times daily #7 possible underlying memory loss likely dementia #8 DVT prophylaxis on anticoagulation Eliquis #9 GI prophylaxis with Pepcid 20 mg p.o. daily #10 disposition need 1-2 inpatient hospitalization night for stabilization Objective - Vital Signs Vital signs: Vital Signs Temp 97.6 F 10/16/20 08:00 Pulse 63 10/16/20 11:55 Resp 16 10/16/20 11:55 BP 114/68 10/16/20 11:55 Pulse Ox 98 10/16/20 11:55 Intake & Output 10/15/20 10/16/20 10/16/20 18:59 06:59 18:59 Intake Total 480 240 Output Total 500 420 Balance -20 -420 240 Weight 57.5 kg Intake: Oral 480 240 Output: Urine 500 420 Other: Voiding Method Urinal Urinal Urinal # Voids 2 - Labs CBC & Chem 7: 10/15/20 05:27 10/15/20 05:27
[2020-10-16] MEDS: ATORVASTATIN 40 MG TAB PO SCH (20:39)
[2020-10-17] MEDS ORDERED: REGADENOSON 0.4 MG/5 ML SYRINGE IV PRN (09:00)
[2020-10-17] MEDS ORDERED: AMINOPHYLLINE 500 MG/20 ML VIAL IV PRN (09:00)
[2020-10-17] MEDS ORDERED: CAFFEINE CITRATE 60 MG/3 ML VIAL IV PRN (09:00)
--- NOTE | 2020-10-17 10:38 | P.PN ---
Subjective Patient is a pleasant 84-year-old male with history of hypertension, hyperlipidemia, atrial flutter status post ablation, complete heart block status post dual-chamber permament pacemaker as well as His bundle pacing, and reported CAD status post 3 stents who presents secondary chest pain. Patient lives with a caregiver however is normally fairly functional. He normally follows with Dr. Arguello. Chest pain occurred while he was sitting and not doing anything. It lasted for approximately 2 hours and then resolved. Apparently was gone by the time he reached the emergency department. He denies any associated nausea, diaphoresis or shortness breath. He has had no recurrence. He has not taken any nitroglycerin for this. Blood work on admission, white blood cell count 4.4, hemoglobin 13.1, platelets 269, troponin 0.05, 0.06, 0.048, BUN 38, creatinine 0.76, total cholesterol 124, LDL 64, HDL 38. EKG shows ventricular paced rhythm with atrial sensed. 10/17/20: Blood pressure 134/65, heart rate 60, afebrile, maintaining oxygen saturations on room air. Telemetry reviewed, patient in Vpaced rhythm HR 60-70s. Echocardiogram performed which shows borderline ejection fraction 50-55%, inferior hypokinesis, severely dilated left atrium, mild mitral regurgitation. No further chest pain episodes. Plan for Lexiscan stress test today. PHYSICAL EXAMINATION Vital signs reviewed. CONSTITUTIONAL: No apparent distress. HEENT: Head is normocephalic. No JVD. No carotid bruit. CHEST EXAMINATION: Lungs are clear to auscultation. No chest wall tenderness is noted on palpation or with deep breathing. HEART EXAMINATION: Regular rate and rhythm. S1, S2 heard. No murmurs, gallops or rub. ABDOMEN: Soft, nontender. Positive bowel sounds. EXTREMITIES: 2+ peripheral pulses, no lower extremity edema and no calf tenderness. NEUROLOGIC EXAMINATION: Patient is awake, alert ASSESSMENT Chest pain with elevated troponins. Rule out non-STEMI versus chronically elevated troponins Reported coronary artery disease status post stenting approximately 3 years ago in [place] Essential hypertension History of atrial flutter status post ablation, atrial fibrillation on anticoagulation Sick sinus syndrome status post dual-chamber permanent pacemaker, his bundle placing Mild anemia Mild dementia PLAN Continue current cardiac medications Echocardiogram shows mildly decreased ejection fraction 50-55% with inferior hypokinesis. Perform Lexiscan stress test to assess for stress induced cardiac ischemia. If abnormal will consider coronary angiography. If Lexiscan stress test negative, ok to discharge patient from a cardiology perspective Patient to follow up with Dr. Arguello in outpatient setting. Objective - Vital Signs Vital signs: Vital Signs Temp 97.7 F 10/17/20 04:00 Pulse 68 10/17/20 04:00 Resp 18 10/17/20 04:00 BP 134/65 10/17/20 04:00 Pulse Ox 97 10/17/20 04:00 Intake & Output 10/16/20 10/17/20 10/17/20 18:59 06:59 18:59 Intake Total 480 Output Total 200 420 Balance 280 -420 Weight 56.9 kg Intake: Oral 480 Output: Urine 200 420 Other: Voiding Method Urinal Urinal # Voids 1 - Labs CBC & Chem 7: 10/15/20 05:27 10/15/20 05:27
[2020-10-17 12:11] VITALS: BP 131/72; PULSE 62; RESP 16; TEMP 97.8
[2020-10-17] MEDS: ASPIRIN 81 MG PO SCH (12:13)
[2020-10-17] MEDS: diphenhydrAMINE 25 MG CAP PO SCH (12:13)
[2020-10-17] MEDS: MULTIVITAMINS, THERA 1 EACH TAB PO SCH (12:13)
[2020-10-17] MEDS: CLOPIDOGREL 75 MG TAB PO SCH (12:13)
[2020-10-17] MEDS: lisinopriL 10 MG TAB PO SCH (12:13)
[2020-10-17] MEDS: carvediloL 3.125 MG TAB PO SCH (12:13)
[2020-10-17] MEDS: CALCIUM CARB-VIT D 500 MG-5 MCG TAB PO SCH (12:13)
[2020-10-17] MEDS: OXYBUTYNIN CHLORIDE 5 MG TAB PO SCH (12:13)
[2020-10-17] MEDS: APIXABAN 2.5 MG TABLET PO SCH (12:13)
[2020-10-17] MEDS: ISOSORBIDE MONONITRATE ER 30 MG TAB.ER.24H PO SCH (12:13)
[2020-10-17] MEDS: FUROSEMIDE 20 MG TAB PO SCH (12:13)
[2020-10-17] MEDS: FERROUS SULFATE 325 MG TAB PO SCH (12:14)
[2020-10-17] MEDS: NON FORMULARY DRUG (Enzalutamide [Xtandi] 40 MG Capsule) PO SCH (12:14)
--- NOTE | 2020-10-17 12:23 | NM ---
EXAMINATION TYPE: NM stress lexiscan cardiolite DATE OF EXAM: 10/17/2020 COMPARISON: NONE HISTORY: 84-year-old female with chest pain TECHNIQUE: After the intravenous administration of 10.2 mCi Tc 99m Sestamibi - Cardiolite resting SP ECT images acquired 60 minutes post injection. The patient received 0.4mg Lexiscan, 24.5 mCi Tc 99m Sestamibi - Stress images obtained [address] injection FINDINGS: Review of stress and rest SPECT images demonstrates small area of fixed perfusion defect along the mi d anterior wall, most likely attenuation artifact as there is no corresponding defect on polar maps. No discrete reversibility is seen. Gated analysis shows normal wall motion with an estimated left ve ntricular ejection fraction of 68 %. TID is calculated at 0.98, within normal limits. IMPRESSION: Small fixed defect along the mid anterior wall most likely attenuation artifact rather than old infar ct. Clinically correlate. No scintigraphic evidence for reversible ischemia.
--- NOTE | 2020-10-17 12:27 | P.DS ---
Providers Date of admission: 10/14/20 22:14 Expected date of discharge: 10/17/20 Attending physician: Dianelys Flowers MD Consults: 10/14/20 22:16 Consult Physician Urgent Consulting Provider: [facility] Consult Reason/Comments: NSTEMI Do you want consulting provider notified?: Yes Primary care physician: Levon Ching MD Hospital Course: 84 years old male poor historian under the care of a caregiver with past medical history of hypertension, hyperlipidemia and stroke with problem flutter s/p ablation, atrial fibrillation, sick sinus syndrome status post permanent pacemaker, history of coronary artery disease with previous stenting, history of prostate cancer and skin cancer comes in with chest pain. Patient is a poor historian but states that the chest pain started yesterday while patient was sitting down and not doing anything. It lasted 2 hours and was gone by the time patient came to the ER. He denies any history of shortness of breath or radiation of the pain. Patient denies any nausea, vomiting, diarrhea or abdominal pain.Tried calling the caregiver to provide more history but no contact would be made In the ER, EKG was performed which showed ventricular paced rhythm rate of [address] segment elevation or depression. Troponin was mildly elevated at 0.052. Labs were reviewed patient has a hemoglobin of 13 on admission with MCV 105.8 sodium 135 creatinine 0.78 BUN 38 Leukos 107 creatinine elevated to 0.64 followed by 0.048 BNP 2250 lipase is normal chest x-ray was obtained which was negative for any acute findings. Cardiology was consulted 10/16 Patient examined bedside. Patient denies any chest pain, shortness of breath, abdominal pain nausea or vomiting. He tolerated his diet well. Vitals reviewed patient is a 63 respiratory rate 16 blood pressure 114/68 patient seen by cardiology with plan to do a stress test versus cardiac cath tomorrow. Repeat labs in the morning 10/17: Echocardiogram reveals EF of 50-55% with mild concentric left ventricle hypertrophy, mild aortic valve sclerosis, trace mitral regurgitation, mild tricuspid regurgitation. He has been afebrile, heart rate 60, blood pressure 134/65, pulse ox 97% on room air. Patient is undergoing Lexiscan Cardiolite stress test today. If this is normal, patient will be discharged home once cleared by cardiology. Assessment and plan #1 acute substernal chest pain rule out acute coronary syndrome. Troponin slightly elevated. Echocardiogram ordered possible stress test on Saturday. 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 Follows Dr. Santana On enzalutamide 40 mg 3 times daily #7 possible underlying memory loss likely dementia Discharge plan Home Impression and plan of care have been directed as dictated by the signing physician. Martina Brantley nurse practitioner acting as scribe for signing physician. Patient Condition at Discharge: Serious Plan - Discharge Summary Discharge Rx Participant: No New Discharge Prescriptions: Continue lisinopriL [Zestril] 10 mg PO DAILY carvediloL [Coreg] 3.125 tab PO BID Bebeto/D3/Mag11/Zinc/Medical Research Assistant/Kaleb/Bor [Caltrate 600+D Plus Tablet] 1 tab PO DAILY Acetaminophen Tab [Tylenol] 500 mg PO Q6H PRN PRN Reason: Pain Atorvastatin Calcium [Lipitor] 40 mg PO HS Enzalutamide [Xtandi] 40 mg PO QID Apixaban [Eliquis] 2.5 mg PO BID Oxybutynin Chloride 2.5 mg PO BID Ferrous Sulfate [Feosol] 325 mg PO BID Isosorbide Mononitrate ER [Imdur] 30 mg PO DAILY diphenhydrAMINE [Benadryl] 25 mg PO BID Multivitamins, Thera [Multivitamin (formulary)] 1 tab PO DAILY Albuterol Sulfate [Ventolin HFA] 1 - 2 puff INHALATION RT-Q6H PRN PRN Reason: Shortness Of Breath Aspirin EC [Ecotrin Low Dose] 81 mg PO DAILY Furosemide [Lasix] 20 mg PO DAILY Clopidogrel [Plavix] 75 mg PO DAILY Discontinued Metoprolol Tartrate [Lopressor] 12.5 mg PO BID Discharge Medication List carvediloL [Coreg] 3.125 tab PO BID 02/01/14 [History] lisinopriL [Zestril] 10 mg PO DAILY 02/01/14 [History] Acetaminophen Tab [Tylenol] 500 mg PO Q6H PRN 10/14/20 [History] Albuterol Sulfate [Ventolin HFA] 1 - 2 puff INHALATION RT-Q6H PRN 10/14/20 [History] Apixaban [Eliquis] 2.5 mg PO BID 10/14/20 [History] Aspirin EC [Ecotrin Low Dose] 81 mg PO DAILY 10/14/20 [History] Atorvastatin Calcium [Lipitor] 40 mg PO HS 10/14/20 [History] Bebeto/D3/Mag11/Zinc/Medical Research Assistant/Kaleb/Bor [Caltrate 600+D Plus Tablet] 1 tab PO DAILY 10/14/20 [History] Clopidogrel [Plavix] 75 mg PO DAILY 10/14/20 [History] Enzalutamide [Xtandi] 40 mg PO QID 10/14/20 [History] Ferrous Sulfate [Feosol] 325 mg PO BID 10/14/20 [History] Furosemide [Lasix] 20 mg PO DAILY 10/14/20 [History] Isosorbide Mononitrate ER [Imdur] 30 mg PO DAILY 10/14/20 [History] Multivitamins, Thera [Multivitamin (formulary)] 1 tab PO DAILY 10/14/20 [History] Oxybutynin Chloride 2.5 mg PO BID 10/14/20 [History] diphenhydrAMINE [Benadryl] 25 mg PO BID 10/14/20 [History] Follow up Appointment(s)/Referral(s): Rebecca Arguello MD [STAFF PHYSICIAN] - 2 Weeks Levon Ching MD [Primary Care Provider] - 1 Week Discharge Disposition: HOME SELF-CARE
--- NOTE | 2020-10-17 14:58 | EST ---
EXERCISE STRESS DATE OF SERVICE: AGE: 84 SEX: M HT: 5'5"` WT: 125 lbs. PROTOCOL: :exiscan STAGE: NA DURATION OF EXERCISE: 5 min. HEART RATE REST: 61 BLOOD PRESSURE REST: 170/60 MAXIMUM HEART RATE ACHIEVED: 61 MAXIMUM BLOOD PRESSURE: 170/60 85% MPHR: 114 100% MPHR: 134 METS: NA RESULTS: Baseline rhythm is atrial fibrillation with 100% ventricular pacing. Baseline blood pressure 170/60 mmHg. Patient received injection of Lexiscan. Electrocardiograph monitoring revealed no evidence of diagnostic ischemic ST deviation. Cardiolite was injected per protocol. CONCLUSION: 1. Nondiagnostic electrocardiograph stress testing. 2. Nuclear images will be reported separately. MMODL / IJN: [id number] /
--- NOTE | 2020-10-18 13:16 | CDI ---
Documentation Clarification Form Date: 10/18/2020 01:07:10 PM From: Say Salinas Admit Date: 10/14/2020 10:14:00 PM Patient Name: Sidney Chau Visit Number: [id number] Discharge Date: 10/17/2020 03:55:00 PM ATTENTION: The Clinical Documentation Specialists (CDI) and [facility] Coding Staff appreciate your assistance in clarifying documentation. Please respond to the clarification below the line at the bottom and electronically sign. The CDI & [facility] Coding staff will review the response and follow-up if needed. Please note: Queries are made part of the Legal Health Record. If you have any questions, please contact the author of this message via ITS. Dr. Dianelys Flowers The patients principal diagnosis the diagnosis that was chiefly responsible for the admission - has not been clearly identified and clarification is requested. Discharge summary states R/O acute coronary syndrome. Stress test following was negative. The patient presented with chest pain and possible NSTEMI History/Risk factors: Hx of heart failure Clinical Indicators: Lab findings: slightly elevated troponin Radiology findings: CXR clear Vital Signs: Treatment: Consults: In your professional opinion, can you please clarify which diagnosis, after study, was the reason chiefly responsible for the admission? [X ] NSTEMI [ ] Acute coronary syndrome without [place] [ ] Other, please specify [ ] Unable to determine [ ] chest pain of uknown etiology [ ] chest pain caused by: please clarify: MTDD
== END 2020-10-17 15:55 | disposition home or self-care (01) | DRG 282 ==
LOC: EC 20:50 → 3SCARD 22:14 → 3NCARDOBS 10-15 20:12 → 3SCARD 10-15 20:12
PROVIDERS: ADMIT Internal Medicine; ATTEND Internal Medicine
DX: I21.4 Non-ST elevation (NSTEMI) myocardial infarction (principal); K21.9 Gastro-esophageal reflux disease without esophagitis; M19.90 Unspecified osteoarthritis, unspecified site; E78.5 Hyperlipidemia, unspecified; I48.91 Unspecified atrial fibrillation; I25.10 Atherosclerotic heart disease of native coronary artery without angina pectoris; I50.9 Heart failure, unspecified; I11.0 Hypertensive heart disease with heart failure; I49.5 Sick sinus syndrome; F03.90 Unspecified dementia, unspecified severity, without behavioral disturbance, psychotic disturbance, mood disturbance, and anxiety; D64.9 Anemia, unspecified; Z85.828 Personal history of other malignant neoplasm of skin; Z87.01 Personal history of pneumonia (recurrent); Z86.73 Personal history of transient ischemic attack (TIA), and cerebral infarction without residual deficits; Z79.82 Long term (current) use of aspirin; Z95.5 Presence of coronary angioplasty implant and graft; Z79.01 Long term (current) use of anticoagulants; Z79.02 Long term (current) use of antithrombotics/antiplatelets; Z85.46 Personal history of malignant neoplasm of prostate; Z95.0 Presence of cardiac pacemaker; Z79.899 Other long term (current) drug therapy
CPT/HCPCS: 36415; 71046; 78452; 80053; 80061; 83690; 83735; 83880; 84484; 85025; 85610; 85730; 93005; 93017; 93306; 99285

== ENCOUNTER 2021-01-04 16:29 | Observation (INO) | payer MEDICARE, OTHER ==
[2021-01-04] MEDS ORDERED: SODIUM CHLORIDE 0.9% 500 ML 500 ML IV STA (17:22)
--- NOTE | 2021-01-04 17:42 | ED ---
General Adult HPI - General Chief complaint: GI Bleed Stated complaint: Sent by Dr/Internal Bleeding Time Seen by Provider: 01/04/21 16:45 Source: patient, family, RN notes reviewed, old records reviewed Mode of arrival: wheelchair Limitations: no limitations - History of Present Illness Initial comments: This is an 85-year-old male who presents emergency department after having spent some blood this morning and then later in the day he states he was having bright red blood per rectum when he wiped. Patient also states he started having a bloody nose after he was having some hemoptysis. Patient denies any headache patient denies numbness weakness patient denies any lightheadedness or dizziness. Patient denies any difficulty breathing first breath per patient denies any chest pain or palpitations. Patient denies any abdominal pain. Patient states he had no nausea vomiting but has had some diarrhea recently. Patient is on a blood thinner. - Related Data Home Medications Medication Instructions Recorded Confirmed carvediloL [Coreg] 3.125 tab PO BID 02/01/14 10/14/20 lisinopriL [Zestril] 10 mg PO DAILY 02/01/14 10/14/20 Acetaminophen Tab [Tylenol] 500 mg PO Q6H PRN 10/14/20 10/14/20 Albuterol Sulfate [Ventolin HFA] 1 - 2 puff INHALATION RT-Q6H PRN 10/14/20 10/14/20 Apixaban [Eliquis] 2.5 mg PO BID 10/14/20 10/14/20 Aspirin EC [Ecotrin Low Dose] 81 mg PO DAILY 10/14/20 10/14/20 Atorvastatin Calcium [Lipitor] 40 mg PO HS 10/14/20 10/14/20 Bebeto/D3/Mag11/Zinc/Functional Director/Kaleb/Bor 1 tab PO DAILY 10/14/20 10/14/20 [Caltrate 600+D Plus Tablet] Clopidogrel [Plavix] 75 mg PO DAILY 10/14/20 10/14/20 Enzalutamide [Xtandi] 40 mg PO QID 10/14/20 10/14/20 Ferrous Sulfate [Feosol] 325 mg PO BID 10/14/20 10/14/20 Furosemide [Lasix] 20 mg PO DAILY 10/14/20 10/14/20 Isosorbide Mononitrate ER [Imdur] 30 mg PO DAILY 10/14/20 10/14/20 Multivitamins, Thera [Multivitamin 1 tab PO DAILY 10/14/20 10/14/20 (formulary)] Oxybutynin Chloride 2.5 mg PO BID 10/14/20 10/14/20 diphenhydrAMINE [Benadryl] 25 mg PO BID 10/14/20 10/14/20 Allergies Allergy/AdvReac Type Severity Reaction Status Date / Time Penicillins Allergy Unknown Verified 01/04/21 16:45 Review of Systems ROS Statement: Those systems with pertinent positive or pertinent negative responses have been documented in the HPI. ROS Other: All systems not noted in ROS Statement are negative. Past Medical History Past Medical History: Cancer, Heart Failure, GERD/Reflux, Osteoarthritis (OA), Pneumonia Additional Past Medical History / Comment(s): see Dr Robertson H&P, hx prostate and skin cancer, pneumonia 02/2014 History of Any Multi-Drug Resistant Organisms: None Reported Past Surgical History: Hernia Repair, Pacemaker, Prostate Surgery Past Anesthesia/Blood Transfusion Reactions: No Reported Reaction Additional Past Anesthesia/Blood Transfusion Reaction / Comment(s): unknown family hx from transitional care liaison Type of Cardiac Device: Permanent Pacemaker Device Placement Date:: unknown Past Psychological History: No Psychological Hx Reported Smoking Status: Never smoker Past Alcohol Use History: None Reported Past Drug Use History: None Reported General Exam - General Exam Comments Initial Comments: GENERAL: Patient is well-developed and well-nourished. Patient is nontoxic and well- hydrated and is in no acute distress. ENT: Neck is soft and supple. No significant lymphadenopathy is noted. Oropharynx is clear. Moist mucous membranes. Neck has full range of motion without eliciting any pain. EYES: The sclera were anicteric and conjunctiva were pink and moist. Extraocular movements were intact and pupils were equal round and reactive to light. Eyelids were unremarkable. PULMONARY: Unlabored respirations. Good breath sounds bilaterally. No audible rales rhonchi or wheezing was noted. CARDIOVASCULAR: There is a regular rate and rhythm without any murmurs gallops or rubs. ABDOMEN: Soft and nontender with normal bowel sounds. SKIN: Skin is a little bit pale NEUROLOGIC: Patient is alert and oriented x3. Cranial nerves II through XII are grossly intact. Motor and sensory are also intact. Normal speech, volume and content. Symmetrical smile. MUSCULOSKELETAL: Normal extremities with adequate strength and full range of motion. LYMPHATICS: No significant lymphadenopathy is noted PSYCHIATRIC: Normal psychiatric evaluation. Limitations: no limitations Course Vital Signs 01/04/21 16:42 Temperature 98.1 F Pulse Rate 72 Respiratory 16 Rate Blood Pressure 120/58 O2 Sat by Pulse 98 Oximetry Medical Decision Making - Medical Decision Making EKG shows paced rhythm at 61 bpm QRS 168 QT interval is 442 QTC is 455. Spoke with Dr. Thompson agreed to admit the patient admitted the patient I consult Dr. Danielle. Condition to be some confusion as to whether or not the patient was spitting up blood or did he have a bloody nose patient was doing both at one time or another. Patient leaves he was spitting up blood before he had a bloody nose. I did roll the patient and look for hemorrhoids I saw no hemorrhoids. Patient's troponin was mildly bumps I repeated the troponin 2. - Lab Data Result diagrams: 01/04/21 17:24 01/04/21 17:24 Lab Results 01/04/21 01/04/21 01/04/21 Range/Units 17:04 17:06 17:24 WBC 8.0 (3.8-10.6) k/uL RBC 3.64 L (4.30-5.90) m/uL Hgb 12.8 L (13.0-17.5) gm/dL Hct 39.6 (39.0-53.0) % MCV 108.6 H (80.0-100.0) fL MCH 35.1 H (25.0-35.0) pg MCHC 32.3 (31.0-37.0) g/dL RDW 13.2 (11.5-15.5) % Plt Count 259 (150-450) k/uL MPV 7.7 Neutrophils % 76 % Lymphocytes % 14 % Monocytes % 7 % Eosinophils % 1 % Basophils % 1 % Neutrophils # 6.0 (1.3-7.7) k/uL Lymphocytes # 1.1 (1.0-4.8) k/uL Monocytes # 0.6 (0-1.0) k/uL Eosinophils # 0.1 (0-0.7) k/uL Basophils # 0.0 (0-0.2) k/uL Macrocytosis Moderate PT (9.0-12.0) sec INR (<1.2) APTT (22.0-30.0) sec Sodium (137-145) mmol/L Potassium (3.5-5.1) mmol/L Chloride (98-107) mmol/L Carbon Dioxide (22-30) mmol/L Anion Gap mmol/L BUN (9-20) mg/dL Creatinine (0.66-1.25) mg/dL Est GFR (CKD-EPI)AfAm (>60 ml/min/1.73 sqM) Est GFR (CKD-EPI)NonAf (>60 ml/min/1.73 sqM) Glucose (74-99) mg/dL Calcium (8.4-10.2) mg/dL Magnesium (1.6-2.3) mg/dL Total Bilirubin (0.2-1.3) mg/dL AST (17-59) U/L ALT (4-49) U/L Alkaline Phosphatase (38-126) U/L Troponin I (0.000-0.034) ng/mL Total Protein (6.3-8.2) g/dL Albumin (3.5-5.0) g/dL Blood Type A Positive Blood Type Confirm A Positive Blood Type Recheck No Previous Record Bld Type Recheck Status CABO Indicated Antibody Screen NEGATIVE Spec Expiration Date 01/07/2021 - 232301/04/21 01/04/21 01/04/21 Range/Units 17:24 17:24 17:24 WBC (3.8-10.6) k/uL RBC (4.30-5.90) m/uL Hgb (13.0-17.5) gm/dL Hct (39.0-53.0) % MCV (80.0-100.0) fL MCH (25.0-35.0) pg MCHC (31.0-37.0) g/dL RDW (11.5-15.5) % Plt Count (150-450) k/uL MPV Neutrophils % % Lymphocytes % % Monocytes % % Eosinophils % % Basophils % % Neutrophils # (1.3-7.7) k/uL Lymphocytes # (1.0-4.8) k/uL Monocytes # (0-1.0) k/uL Eosinophils # (0-0.7) k/uL Basophils # (0-0.2) k/uL Macrocytosis PT 10.1 (9.0-12.0) sec INR 0.9 (<1.2) APTT 22.6 (22.0-30.0) sec Sodium 137 (137-145) mmol/L Potassium 4.2 (3.5-5.1) mmol/L Chloride 106 (98-107) mmol/L Carbon Dioxide 24 (22-30) mmol/L Anion Gap 7 mmol/L BUN 35 H (9-20) mg/dL Creatinine 0.77 (0.66-1.25) mg/dL Est GFR (CKD-EPI)AfAm >90 (>60 ml/min/1.73 sqM) Est GFR (CKD-EPI)NonAf 82 (>60 ml/min/1.73 sqM) Glucose 76 (74-99) mg/dL Calcium 8.7 (8.4-10.2) mg/dL Magnesium 2.1 (1.6-2.3) mg/dL Total Bilirubin 0.4 (0.2-1.3) mg/dL AST 46 (17-59) U/L ALT 29 (4-49) U/L Alkaline Phosphatase 300 H (38-126) U/L Troponin I 0.082 H* (0.000-0.034) ng/mL Total Protein 7.0 (6.3-8.2) g/dL Albumin 3.7 (3.5-5.0) g/dL Blood Type Blood Type Confirm Blood Type Recheck Bld Type Recheck Status Antibody Screen Spec Expiration Date Disposition Clinical Impression: Hemoptysis, Lower GI bleed Disposition: ADMITTED IP TO THIS [facility] Referrals: Levon Ching MD [Primary Care Provider] - 1-2 days Time of Disposition: 18:44
[2021-01-04 17:45] LABS: Basophils % (A) 1 %; Eosinophils # (A) 0.1 k/uL (0-0.7); Eosinophils % (A) 1 %; HCT 39.6 % (39.0-53.0); HGB 12.8 gm/dL (13.0-17.5); Lymphocytes # (A) 1.1 k/uL (1.0-4.8); Lymphocytes % (A) 14 %; MCH 35.1 pg (25.0-35.0); MCHC 32.3 g/dL (31.0-37.0); MCV 108.6 fL (80.0-100.0); Macrocytosis Moderate; Mean Platelet Volume 7.7; Monocytes # (A) 0.6 k/uL (0-1.0); Monocytes % (A) 7 %; Neutrophils % (A) 76 %; Platelet Count 259 k/uL (150-450); RBC 3.64 m/uL (4.30-5.90); RDW 13.2 % (11.5-15.5)
[2021-01-04 17:58] LABS: ALT 29 U/L (4-49); AST 46 U/L (17-59); African American GFR (CKD) >90 (>60 ml/min/1.73 sqM); Albumin 3.7 g/dL (3.5-5.0); Alkaline Phosphatase 300 U/L (38-126); Anion Gap 7 mmol/L; Blood Urea Nitrogen 35 mg/dL (9-20); Calcium 8.7 mg/dL (8.4-10.2); Carbon Dioxide 24 mmol/L (22-30); Chloride 106 mmol/L (98-107); Glucose 76 mg/dL (74-99); Magnesium 2.1 mg/dL (1.6-2.3); Non-African American GFR(CKD) 82 (>60 ml/min/1.73 sqM); Potassium 4.2 mmol/L (3.5-5.1); Sodium 137 mmol/L (137-145); Total Bilirubin 0.4 mg/dL (0.2-1.3)
[2021-01-04 18:03] LABS: INR 0.9 (<1.2); Partial Thromboplastin Time 22.6 sec (22.0-30.0); Prothrombin Time 10.1 sec (9.0-12.0)
[2021-01-04] MEDS ORDERED: ALBUTEROL NEBULIZED 2.5 MG/3 ML INHALATION PRN (22:11)
[2021-01-04] MEDS ORDERED: NITROGLYCERIN SL TABS 0.4 MG TAB SUBLINGUAL PRN (22:11)
[2021-01-05 00:21] LABS: Basophils % (A) 0 %; Eosinophils # (A) 0.1 k/uL (0-0.7); Eosinophils % (A) 2 %; HCT 38.8 % (39.0-53.0); HGB 12.3 gm/dL (13.0-17.5); Lymphocytes # (A) 1.3 k/uL (1.0-4.8); Lymphocytes % (A) 17 %; MCH 34.9 pg (25.0-35.0); MCHC 31.6 g/dL (31.0-37.0); MCV 110.5 fL (80.0-100.0); Macrocytosis Marked; Mean Platelet Volume 7.5; Monocytes # (A) 0.6 k/uL (0-1.0); Monocytes % (A) 8 %; Neutrophils # (A) 5.4 k/uL (1.3-7.7); Neutrophils % (A) 72 %; Platelet Count 232 k/uL (150-450); RBC 3.51 m/uL (4.30-5.90); RDW 13.3 % (11.5-15.5); WBC 7.4 k/uL (3.8-10.6)
[2021-01-05] MEDS: lisinopriL 5 MG TAB PO SCH ×2 (08:54→21:58)
[2021-01-05] MEDS: OXYBUTYNIN CHLORIDE 5 MG TAB PO SCH ×2 (08:54→21:56)
[2021-01-05] MEDS: carvediloL 3.125 MG TAB PO SCH ×2 (08:54→21:58)
[2021-01-05] MEDS: diphenhydrAMINE 25 MG CAP PO SCH ×2 (08:54→21:56)
[2021-01-05] MEDS: MULTIVITAMINS, THERA 1 EACH TAB PO SCH (08:54)
[2021-01-05] MEDS: ISOSORBIDE MONONITRATE ER 30 MG TAB.ER.24H PO SCH (08:54)
[2021-01-05] MEDS: DOCUSATE 100 MG CAP PO SCH ×2 (08:54→21:55)
[2021-01-05] MEDS: CALCIUM CARB-VIT D 500 MG-5 MCG TAB PO SCH (08:54)
[2021-01-05] MEDS: FERROUS SULFATE 325 MG TAB PO SCH ×2 (08:54→21:56)
[2021-01-05] MEDS: ACETAMINOPHEN TAB 500 MG TAB PO SCH ×2 (08:55→21:58)
[2021-01-05] MEDS: predniSONE 5 MG TAB PO SCH ×2 (08:55→21:56)
--- NOTE | 2021-01-05 13:08 | P.GSCN ---
History of Present Illness Consult date: 01/05/21 History of present illness: CHIEF COMPLAINT: GI bleed HISTORY OF PRESENT ILLNESS: This is a 85-year-old male who is on Plavix and Eliquis at home. He presents to the hospital with complaints of bright red blood per rectum when he wipes 1 day. Per nursing staff there have been no bleeding reported through the night. Apparently patient also had some epistaxis. Patient states that he had blood in his mouth. He denies any vomiting or cough. He lives with his caregiver. His hemoglobin is stable at 12.3. He is slightly confused but per patient he had colonoscopy years ago and reported that it was negative. He has never had an EGD. Patient denies any abdominal pain, denies any rectal pain. Denies any history of hemorrhoids. Denies any fevers chills or sweats. PAST MEDICAL HISTORY: Atrial fibrillation, coronary disease with cardiac stents Prostate cancer. His heart failure, GERD, osteoarthritis, pneumonia PAST SURGICAL HISTORY: Pacemaker, prostate surgery, hernia repair MEDICATIONS: See list. ALLERGIES: See list. SOCIAL HISTORY: No illicit drug use. REVIEW OF SYSTEMS: CONSTITUTIONAL: Denies fever or chills. HEENT: Denies blurred vision, vision changes, or eye pain. Denies hemoptysis CARDIOVASCULAR: Denies chest pain or pressure. RESPIRATORY: No shortness of breath. GASTROINTESTINAL: See HPI for pertinent findings HEMATOLOGIC: Denies bleeding disorders. GENITOURINARY: Denies any blood in urine or increased urinary frequency. SKIN: Denies pruitis. Denies rash. PHYSICAL EXAM: VITAL SIGNS: Reviewed GENERAL: Well-developed in no acute distress. HEENT: No sclera icterus. Extraocular movements grossly intact. Moist buccal mucosa. Head is atraumatic, normocephalic. No nasal drainage. ABDOMEN: Soft. Nondistended. Nontender NEUROLOGIC: Alert and oriented. Cranial nerves II through XII grossly intact. LABORATORY DATA: WBC 7.4 hemoglobin 12.3 platelets 232 Sodium 137 potassium 4.2 BUN 35 creatinine 0.77 Troponin 0.082, 0.134 IMAGING: ASSESSMENT: 1. Lower GI bleed with Bright red blood per rectum. 2. Epistaxis 3. Elevated troponins PLAN: -Hold aspirin and Eliquis due to GI bleed -EGD and colonoscopy on 01/09/[address] plasencia -Start clear liquid diet -Continue to monitor for any signs or symptoms of bleeding -Repeat CBC in a.m. -Cardiology following for elevated troponins Thank you for this consultation Physician Vocational Education Professional note has been reviewed by physician. Signing provider agrees with the documented findings, assessment, and plan of care. Past Medical History Past Medical History: Cancer, Heart Failure, GERD/Reflux, Osteoarthritis (OA), Pneumonia Additional Past Medical History / Comment(s): see Dr Robertson H&P, hx prostate and skin cancer, pneumonia 02/2014 History of Any Multi-Drug Resistant Organisms: None Reported Past Surgical History: Hernia Repair, Pacemaker, Prostate Surgery Past Anesthesia/Blood Transfusion Reactions: No Reported Reaction Additional Past Anesthesia/Blood Transfusion Reaction / Comm: unknown family hx from wound care physician Type of Cardiac Device: Permanent Pacemaker Device Placement Date:: unknown Past Psychological History: No Psychological Hx Reported Smoking Status: Never smoker Past Alcohol Use History: None Reported Past Drug Use History: None Reported Medications and Allergies Home Medications Medication Instructions Recorded Confirmed Type lisinopriL [Zestril] 5 mg PO Q12H 02/01/14 01/04/21 History Acetaminophen Tab [Tylenol] 1,000 mg PO BID 10/14/20 01/04/21 History Albuterol Sulfate [Ventolin HFA] 2 puff INHALATION RT-Q4H PRN 10/14/20 01/04/21 History Apixaban [Eliquis] 2.5 mg PO BID 10/14/20 01/04/21 History Atorvastatin Calcium [Lipitor] 40 mg PO HS 10/14/20 01/04/21 History Bebeto/D3/Mag11/Zinc/National Sales Trainer/Kaleb/Bor 1 tab PO DAILY 10/14/20 01/04/21 History [Caltrate 600+D Plus Tablet] Clopidogrel [Plavix] 75 mg PO DAILY 10/14/20 01/04/21 History Ferrous Sulfate [Feosol] 325 mg PO BID 10/14/20 01/04/21 History Furosemide [Lasix] 10 mg PO Q72H 10/14/20 01/04/21 History Isosorbide Mononitrate ER [Imdur] 30 mg PO DAILY 10/14/20 01/04/21 History Oxybutynin Chloride 2.5 mg PO BID 10/14/20 01/04/21 History diphenhydrAMINE [Benadryl] 50 mg PO BID 10/14/20 01/04/21 History Abiraterone Acetate [Zytiga] 1,000 mg PO DAILY@1500 01/04/21 01/04/21 History Aspirin 81 mg PO DAILY 01/04/21 01/04/21 History Docusate [Colace] 100 mg PO BID 01/04/21 01/04/21 History Multivit-Min/FA/Lycopen/Lutein 1 tab PO DAILY 01/04/21 01/04/21 History [Centrum Silver Tablet] Nitroglycerin Sl Tabs [Nitrostat] 0.4 mg SL Q5M PRN 01/04/21 01/04/21 History carvediloL [Coreg] 3.125 mg PO BID 01/04/21 01/04/21 History predniSONE 5 mg PO BID 01/04/21 01/04/21 History Allergies Allergy/AdvReac Type Severity Reaction Status Date / Time Penicillins Allergy Unknown Verified 01/04/21 19:17 Surgical - Exam Vital Signs Temp Pulse Resp BP Pulse Ox 98.1 F 72 16 120/58 98 01/04/21 16:42 01/04/21 16:42 01/04/21 16:42 01/04/21 16:42 01/04/21 16:42 Results - Labs 01/04/21 23:35 01/04/21 17:24 Abnormal Lab Results - Last 24 Hours (Table) 01/04/21 01/04/21 01/04/21 Range/Units 17:24 17:24 17:24 RBC 3.64 L (4.30-5.90) m/uL Hgb 12.8 L (13.0-17.5) gm/dL Hct (39.0-53.0) % MCV 108.6 H (80.0-100.0) fL MCH 35.1 H (25.0-35.0) pg Macrocytosis BUN 35 H (9-20) mg/dL Alkaline Phosphatase 300 H (38-126) U/L Troponin I 0.082 H* (0.000-0.034) ng/mL 01/04/21 01/05/21 Range/Units 23:35 08:01 RBC 3.51 L (4.30-5.90) m/uL Hgb 12.3 L (13.0-17.5) gm/dL Hct 38.8 L (39.0-53.0) % MCV 110.5 H (80.0-100.0) fL MCH (25.0-35.0) pg Macrocytosis Marked A BUN (9-20) mg/dL Alkaline Phosphatase (38-126) U/L Troponin I 0.134 H* (0.000-0.034) ng/mL Diabetes panel 01/04/21 Range/Units 17:24 Sodium 137 (137-145) mmol/L Potassium 4.2 (3.5-5.1) mmol/L Chloride 106 (98-107) mmol/L Carbon Dioxide 24 (22-30) mmol/L BUN 35 H (9-20) mg/dL Creatinine 0.77 (0.66-1.25) mg/dL Glucose 76 (74-99) mg/dL Calcium 8.7 (8.4-10.2) mg/dL AST 46 (17-59) U/L ALT 29 (4-49) U/L Alkaline Phosphatase 300 H (38-126) U/L Total Protein 7.0 (6.3-8.2) g/dL Albumin 3.7 (3.5-5.0) g/dL Calcium panel 01/04/21 Range/Units 17:24 Calcium 8.7 (8.4-10.2) mg/dL Albumin 3.7 (3.5-5.0) g/dL Pituitary panel 01/04/21 Range/Units 17:24 Sodium 137 (137-145) mmol/L Potassium 4.2 (3.5-5.1) mmol/L Chloride 106 (98-107) mmol/L Carbon Dioxide 24 (22-30) mmol/L BUN 35 H (9-20) mg/dL Creatinine 0.77 (0.66-1.25) mg/dL Glucose 76 (74-99) mg/dL Calcium 8.7 (8.4-10.2) mg/dL Adrenal panel 01/04/21 Range/Units 17:24 Sodium 137 (137-145) mmol/L Potassium 4.2 (3.5-5.1) mmol/L Chloride 106 (98-107) mmol/L Carbon Dioxide 24 (22-30) mmol/L BUN 35 H (9-20) mg/dL Creatinine 0.77 (0.66-1.25) mg/dL Glucose 76 (74-99) mg/dL Calcium 8.7 (8.4-10.2) mg/dL Total Bilirubin 0.4 (0.2-1.3) mg/dL AST 46 (17-59) U/L ALT 29 (4-49) U/L Alkaline Phosphatase 300 H (38-126) U/L Total Protein 7.0 (6.3-8.2) g/dL Albumin 3.7 (3.5-5.0) g/dL
--- NOTE | 2021-01-05 13:29 | P.CRDCN ---
History of Present Illness History of present illness: HISTORY OF PRESENTING ILLNESS Patient is a pleasant 84-year-old male with history of hypertension, hyperlipidemia, atrial flutter status post ablation, complete heart block status post dual-chamber permament pacemaker as well as His bundle pacing, coronary artery disease status post PCI to the proximal LAD, proximal circumflex and mid LAD in 07/18/[address] Boyle at [facility]. He follows with Dr. Arguello. We are consulted for elevated troponin. Patient states he lives with a caregiver. He states he was brought in because he had some blood in his sputum. Patient states that he had blood in his mouth, unable to quantify how much. Apparently patient may of had some bright red blood per rectum when he wipes for 1 day. He denies any chest pain, shortness of breath, lightheadedness, dizziness, palpitations, falls, cough, fever, chills, nausea, vomiting, abdominal pain, symptoms of orthopnea PND. DIAGNOSTICS: EKG shows ventricular paced rhythm with atrial sensed. Lexiscan stress test No evidence of reversible ischemia. Small fixed defect along the mid anterior wall most likely attenuation artifact. Labs, Troponin 0.08, 0.13, WBC 7.4, hemoglobin 12.3, platelets 232, sodium 137, potassium 4.2, BUN 35, serum creatinine 0.7, magnesium 2.1. Echocardiogram 10/15/20 EF of 5055% basal inferior LV wall hypokinetic, RV is mild to moderately enlarged, LA severely dilated, trace mitral regurgitation. REVIEW OF SYSTEMS At the time of my exam: CONSTITUTIONAL: Denies fever or chills. CARDIOVASCULAR: +chest pain, no shortness of breath, orthopnea, PND or palpit ations. RESPIRATORY: Denies cough. GASTROINTESTINAL: Denies abdominal pain, diarrhea, constipation, nausea or vomiting. MUSCULOSKELETAL: Denies myalgias. NEUROLOGIC: Denies numbness, tingling or weakness. ENDOCRINE: Denies fatigue, weight change, polydipsia or polyurina. GENITOURINARY: Denies burning, hematuria or urgency with micturation. HEMATOLOGIC: Denies history of anemia or bleeding. PHYSICAL EXAMINATION Vital signs blood pressure 96/58, heart rate 60, afebrile, Saturations on room air CONSTITUTIONAL: No apparent distress. Frail, Pale. HEENT: Head is normocephalic. Pupils are equal, round. Sclerae anicteric. Mucous membranes of the mouth are moist. No JVD. No carotid bruit. CHEST EXAMINATION: Lungs are clear to auscultation. No chest wall tenderness is noted on palpation or with deep breathing. HEART EXAMINATION: Regular rate and rhythm. S1, S2 heard. No murmurs, gallops or rub. ABDOMEN: Soft, nontender. Positive bowel sounds. EXTREMITIES: 2+ peripheral pulses, no lower extremity edema and no calf tenderness. NEUROLOGIC EXAMINATION: Patient is awake, alert oriented to person, place and year ASSESSMENT GI bleed Epitaxis Elevated troponins, patient without any chest pain, no evidence of ischemia on EKG. Patient appears to have chronically elevated troponin History of Hypertension Hyperlipidemia Atrial flutter status post ablation Complete heart block status post dual-chamber permament pacemaker as well as His bundle pacing Coronary artery disease status post PCI to the proximal LAD Proximal circumflex and mid LAD in 07/18/[address] Boyle at [facility]. Mild anemia Mild dementia PLAN -We will treat the patient medically at this time. Patient with recent Lexiscan stress test and Echocardiogram as noted above. -ELiquis and aspirin on hold due to GI bleed -Continue home cardiac medications atorvastatin, carvedilol, Imdur, lisinopril -Surgery consulted, Plan for EGD and colonoscopy on 01/09/[address] Danielle -From a cardiology perspective, no contraindication to undergo EGD/Colonoscopy at this time. 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 Type of Cardiac Device: Permanent Pacemaker Device Placement Date:: unknown Past Psychological History: No Psychological Hx Reported Smoking Status: Never smoker Past Alcohol Use History: None Reported Past Drug Use History: None Reported Medications and Allergies Home Medications Medication Instructions Recorded Confirmed Type lisinopriL [Zestril] 5 mg PO Q12H 02/01/14 01/04/21 History Acetaminophen Tab [Tylenol] 1,000 mg PO BID 10/14/20 01/04/21 History Albuterol Sulfate [Ventolin HFA] 2 puff INHALATION RT-Q4H PRN 10/14/20 01/04/21 History Apixaban [Eliquis] 2.5 mg PO BID 10/14/20 01/04/21 History Atorvastatin Calcium [Lipitor] 40 mg PO HS 10/14/20 01/04/21 History Bebeto/D3/Mag11/Zinc/Retort Setter/Kaleb/Bor 1 tab PO DAILY 10/14/20 01/04/21 History [Caltrate 600+D Plus Tablet] Clopidogrel [Plavix] 75 mg PO DAILY 10/14/20 01/04/21 History Ferrous Sulfate [Feosol] 325 mg PO BID 10/14/20 01/04/21 History Furosemide [Lasix] 10 mg PO Q72H 10/14/20 01/04/21 History Isosorbide Mononitrate ER [Imdur] 30 mg PO DAILY 10/14/20 01/04/21 History Oxybutynin Chloride 2.5 mg PO BID 10/14/20 01/04/21 History diphenhydrAMINE [Benadryl] 50 mg PO BID 10/14/20 01/04/21 History Abiraterone Acetate [Zytiga] 1,000 mg PO DAILY@1500 01/04/21 01/04/21 History Aspirin 81 mg PO DAILY 01/04/21 01/04/21 History Docusate [Colace] 100 mg PO BID 01/04/21 01/04/21 History Multivit-Min/FA/Lycopen/Lutein 1 tab PO DAILY 01/04/21 01/04/21 History [Centrum Silver Tablet] Nitroglycerin Sl Tabs [Nitrostat] 0.4 mg SL Q5M PRN 01/04/21 01/04/21 History carvediloL [Coreg] 3.125 mg PO BID 01/04/21 01/04/21 History predniSONE 5 mg PO BID 01/04/21 01/04/21 History Allergies Allergy/AdvReac Type Severity Reaction Status Date / Time Penicillins Allergy Unknown Verified 01/04/21 19:17 Physical Exam Vitals: Vital Signs Temp Pulse Pulse Resp BP BP Pulse Ox 10/21/21 08:50 98.4 F 72 16 134/67 98 01/05/21 04:00 98.7 F 63 18 158/72 100 01/05/21 00:00 97.8 F 65 16 172/72 99 01/04/21 20:40 98.7 F 63 16 146/65 99 01/04/21 16:42 98.1 F 72 16 120/58 98 Intake and Output 01/04/21 01/05/21 01/05/21 22:59 06:59 14:59 Output Total 200 100 Balance -200 -100 Output: Urine 200 100 Other: # Voids 1 1 Weight 58.513 kg 57.2 kg Results 01/04/21 23:35 01/04/21 17:24 Cardiac Enzymes 01/04/21 01/04/21 01/05/21 Range/Units 17:24 17:24 08:01 AST 46 (17-59) U/L Troponin I 0.082 H* 0.134 H* (0.000-0.034) ng/mL Coagulation 01/04/21 Range/Units 17:24 PT 10.1 (9.0-12.0) sec APTT 22.6 (22.0-30.0) sec CBC 01/04/21 01/04/21 Range/Units 17:24 23:35 WBC 8.0 7.4 (3.8-10.6) k/uL RBC 3.64 L 3.51 L (4.30-5.90) m/uL Hgb 12.8 L 12.3 L (13.0-17.5) gm/dL Hct 39.6 38.8 L (39.0-53.0) % Plt Count 259 232 (150-450) k/uL Comprehensive Metabolic Panel 01/04/21 Range/Units 17:24 Sodium 137 (137-145) mmol/L Potassium 4.2 (3.5-5.1) mmol/L Chloride 106 (98-107) mmol/L Carbon Dioxide 24 (22-30) mmol/L BUN 35 H (9-20) mg/dL Creatinine 0.77 (0.66-1.25) mg/dL Glucose 76 (74-99) mg/dL Calcium 8.7 (8.4-10.2) mg/dL AST 46 (17-59) U/L ALT 29 (4-49) U/L Alkaline Phosphatase 300 H (38-126) U/L Total Protein 7.0 (6.3-8.2) g/dL Albumin 3.7 (3.5-5.0) g/dL Current Medications Generic Name Dose Route Start Last Admin Trade Name Freq PRN Reason Stop Dose Admin Acetaminophen 1,000 mg 01/05/21 09:00 01/05/21 08:55 Acetaminophen Tab 500 Mg Tab PO 1,000 mg BID BENJAMÍN Administration Albuterol Sulfate 2.5 mg 01/04/21 22:11 Albuterol Nebulized 2.5 Mg/3 Ml INHALATION RT-Q4H PRN Shortness Of Breath Atorvastatin Calcium 40 mg 01/05/21 21:00 Atorvastatin 40 Mg Tab PO HS BENJAMÍN Calcium Carbonate 1 each 01/05/21 09:00 01/05/21 08:54 Calcium Carb-Vit D 500 Mg-5 Mcg Tab PO 1 each DAILY BENJAMÍN Administration Carvedilol 3.125 mg 01/05/21 09:00 01/05/21 08:54 Carvedilol 3.125 Mg Tab PO 3.125 mg BID BENJAMÍN Administration Diphenhydramine HCl 50 mg 01/05/21 09:00 01/05/21 08:54 Diphenhydramine 25 Mg Cap PO 50 mg BID BENJAMÍN Administration Docusate Sodium 100 mg 01/05/21 09:00 01/05/21 08:54 Docusate 100 Mg Cap PO 100 mg BID BENJAMÍN Administration Ferrous Sulfate 325 mg 01/05/21 09:00 01/05/21 08:54 Ferrous Sulfate 325 Mg Tab PO 325 mg BID BENJAMÍN Administration Furosemide 10 mg 01/06/21 09:00 Furosemide 10 Mg Tab PO Q72H BENJAMÍN Isosorbide Mononitrate 30 mg 01/05/21 09:00 01/05/21 08:54 Isosorbide Mononitrate Er 30 Mg Tab.Er.24h PO 30 mg DAILY BENJAMÍN Administration Lisinopril 5 mg 01/05/21 09:00 01/05/21 08:54 Lisinopril 5 Mg Tab PO 5 mg Q12H BENJAMÍN Administration Multivitamins 1 each 01/05/21 09:00 01/05/21 08:54 Multivitamins, Thera 1 Each Tab PO 1 each DAILY BENJAMÍN Administration Nitroglycerin 0.4 mg 10/20/21 22:11 Nitroglycerin Sl Tabs 0.4 Mg Tab SUBLINGUAL Q5M PRN Chest Pain Non-Formulary Medication 1,000 mg 01/05/21 15:00 Abiraterone Acetate [Zytiga] PO DAILY@1500 BENJAMÍN Oxybutynin Chloride 2.5 mg 01/05/21 09:00 01/05/21 08:54 Oxybutynin Chloride 5 Mg Tab PO 2.5 mg BID BENJAMÍN Administration Prednisone 5 mg 01/05/21 09:00 01/05/21 08:55 Prednisone 5 Mg Tab PO 5 mg BID BENJAMÍN Administration Intake and Output 01/04/21 01/05/21 01/05/21 22:59 06:59 14:59 Output Total 200 100 Balance -200 -100 Output: Urine 200 100 Other: # Voids 1 1 Weight 58.513 kg 57.2 kg 01/04/21 23:35 01/04/21 17:24
[2021-01-05] MEDS ORDERED: ABIRATERONE ACETATE 500 MG PO SCH (15:00)
[2021-01-05 16:20] VITALS: RESP 16
--- NOTE | 2021-01-05 19:45 | P.HPIM ---
History of Present Illness H&P Date: 01/05/21 Chief Complaint: Bright red blood per rectum This is a 85-year-old patient, follows with . Chronic stable medical conditions include CHF, GERD, osteoarthritis, pacemaker, hypertension, hyperlipidemia flutter status post ablation, sick sinus syndrome with pacemaker CAD with stent. Patient presents to the ER if she was some nosebleed. Also some question of coughing up some blood. She also noticed some bright red blood per rectum when he wiped himself. There is no weakness no dizziness no lightheadedness. Patient not a very detailed historian. No nausea vomiting. Patient is on eliquis and 80 mg of aspirin. And Plavix. GI services are not available in the hospital. Surgery was consulted. Patient otherwise a fair appetite. There is rather comfortable. Review of systems: GEN.: None EYES: None HEENT: None NECK: None RESPIRATORY: None CARDIOVASCULAR: None GASTROINTESTINAL: None GENITOURINARY: None MUSCULOSKELETAL: None LYMPHATICS: None HEMATOLOGICAL: None PSYCHIATRY: [Slightly forgetful NEUROLOGICAL: Does use a walker Past medical history to include: CHF, GERD, osteoarthritis, pacemaker, hypertension, hyperlipidemia, atrial flutter status post ablation, sick sinus syndrome with a pacemaker, CAD with stent Social history: Lives alone. Does use a walker. 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 Family history: Reviewed, noncontributory to presentation Physical examination: VITAL SIGNS: 98.7, 63, 16, 146/65, 99% room air GENERAL: BMI 24.6, reclining in bed, comfortable. EYES: Pupils equal. Conjunctiva normal. HEENT: External appearance of nose and ears normal, oral cavity grossly normal. Decreased hearing NECK: JVD not raised; masses not palpable. HEART: First and second heart sounds are normal; no edema. LUNGS: Respiratory rate normal; clear to auscultation. ABDOMEN: Soft, nontender, liver spleen not palpable, no masses palpable. PSYCH: Patient is able tonsil simple questionsl. NEUROLOGICAL: Cranial nerves grossly intact; no facial asymmetry, power and sensation grossly intact. LYMPHATICS: No lymph nodes palpable in the axilla and neck INVESTIGATIONS, reviewed in the clinical context: WBC 7.4 hemoglobin 12.3 platelets 232 potassium 4.2 BUN 35 creatinine 0.77 Troponin I 0.082, 0.134 EKG tracing personally reviewed by me-ventricular paced rhythm Assessment and plan: -This patient is not a very detailed historian. Presence some epistaxis, que stionable hemoptysis, and bright red blood per rectum when he wiped himself. Patient this morning did not remember the details of why he presented. Denies any abdominal pain. GI services not available the hospital. General surgery consulted. Follow H&H. Hold off eliquis. -Positive troponin. No cardiac symptoms. Likely from hemodynamic mismatch. Cardiology consulted -Congestive heart failure, from diastolic dysfunction. EF 50-55% -GERD PPI -Bladder outflow dysfunction Oxybutynin 2.5 mg twice a day -Essential hypertension Zestril 5 mg every 12 Coreg 3.125 mg twice a day -Coronary artery disease with history of stent On aspirin, Plavix, eliquis. Proximal circumflex and mid LAD stent by at [place] in 07/18/2020 -History of atrial flutter fibrillation, status post ablation On eliquis -Primary osteoarthritis multiple joints bilateral Pain medications as needed -Chronic gait dysfunction uses a walker to baseline Fall precautions Currently eliquis and aspirin has been held. Home medications resumed. Follow H&H. Surgeries planning for EGD coloscopy. Care was discussed with the patient. Prognosis guarded. 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 Type of Cardiac Device: Permanent Pacemaker Device Placement Date:: unknown Past Psychological History: No Psychological Hx Reported Smoking Status: Never smoker Past Alcohol Use History: None Reported Past Drug Use History: None Reported Medications and Allergies Home Medications Medication Instructions Recorded Confirmed Type lisinopriL [Zestril] 5 mg PO Q12H 02/01/14 01/04/21 History Acetaminophen Tab [Tylenol] 1,000 mg PO BID 10/14/20 01/04/21 History Albuterol Sulfate [Ventolin HFA] 2 puff INHALATION RT-Q4H PRN 10/14/20 01/04/21 History Apixaban [Eliquis] 2.5 mg PO BID 10/14/20 01/04/21 History Atorvastatin Calcium [Lipitor] 40 mg PO HS 10/14/20 01/04/21 History Bebeto/D3/Mag11/Zinc/Furnace Keeper/Kaleb/Bor 1 tab PO DAILY 10/14/20 01/04/21 History [Caltrate 600+D Plus Tablet] Clopidogrel [Plavix] 75 mg PO DAILY 10/14/20 01/04/21 History Ferrous Sulfate [Feosol] 325 mg PO BID 10/14/20 01/04/21 History Furosemide [Lasix] 10 mg PO Q72H 10/14/20 01/04/21 History Isosorbide Mononitrate ER [Imdur] 30 mg PO DAILY 10/14/20 01/04/21 History Oxybutynin Chloride 2.5 mg PO BID 10/14/20 01/04/21 History diphenhydrAMINE [Benadryl] 50 mg PO BID 10/14/20 01/04/21 History Abiraterone Acetate [Zytiga] 1,000 mg PO DAILY@1500 01/04/21 01/04/21 History Aspirin 81 mg PO DAILY 01/04/21 01/04/21 History Docusate [Colace] 100 mg PO BID 01/04/21 01/04/21 History Multivit-Min/FA/Lycopen/Lutein 1 tab PO DAILY 01/04/21 01/04/21 History [Centrum Silver Tablet] Nitroglycerin Sl Tabs [Nitrostat] 0.4 mg SL Q5M PRN 01/04/21 01/04/21 History carvediloL [Coreg] 3.125 mg PO BID 01/04/21 01/04/21 History predniSONE 5 mg PO BID 01/04/21 01/04/21 History Allergies Allergy/AdvReac Type Severity Reaction Status Date / Time Penicillins Allergy Unknown Verified 01/04/21 19:17 Physical Exam Vitals: Vital Signs Temp Pulse Pulse Resp BP BP Pulse Ox 01/05/21 08:50 98.4 F 72 16 134/67 98 01/05/21 04:00 98.7 F 63 18 158/72 100 01/05/21 00:00 97.8 F 65 16 172/72 99 01/04/21 20:40 98.7 F 63 16 146/65 99 01/04/21 16:42 98.1 F 72 16 120/58 98 Intake and Output 01/04/21 01/05/21 01/05/21 22:59 06:59 14:59 Output Total 200 100 Balance -200 -100 Output: Urine 200 100 Other: # Voids 1 1 Weight 58.513 kg 57.2 kg Results CBC & Chem 7: 01/04/21 23:35 01/04/21 17:24 Labs: Abnormal Lab Results - Last 24 Hours (Table) 01/04/21 01/04/21 01/04/21 Range/Units 17:24 17:24 17:24 RBC 3.64 L (4.30-5.90) m/uL Hgb 12.8 L (13.0-17.5) gm/dL Hct (39.0-53.0) % MCV 108.6 H (80.0-100.0) fL MCH 35.1 H (25.0-35.0) pg Macrocytosis BUN 35 H (9-20) mg/dL Alkaline Phosphatase 300 H (38-126) U/L Troponin I 0.082 H* (0.000-0.034) ng/mL 01/04/21 01/05/21 Range/Units 23:35 08:01 RBC 3.51 L (4.30-5.90) m/uL Hgb 12.3 L (13.0-17.5) gm/dL Hct 38.8 L (39.0-53.0) % MCV 110.5 H (80.0-100.0) fL MCH (25.0-35.0) pg Macrocytosis Marked A BUN (9-20) mg/dL Alkaline Phosphatase (38-126) U/L Troponin I 0.134 H* (0.000-0.034) ng/mL Thrombosis Risk Factor Assmnt - Choose All That Apply Each Risk Factor Represents 3 Points: Age 75 years or older Thrombosis Risk Factor Assessment Total Risk Factor Score: 3 Thrombosis Risk Factor Assessment Level: Moderate Risk
[2021-01-05] MEDS ORDERED: ATORVASTATIN 40 MG TAB PO SCH (21:00)
[2021-01-06 07:26] LABS: Basophils % (A) 0 %; Eosinophils # (A) 0.1 k/uL (0-0.7); Eosinophils % (A) 2 %; HGB 12.1 gm/dL (13.0-17.5); Lymphocytes # (A) 0.4 k/uL (1.0-4.8); Lymphocytes % (A) 9 %; MCH 36.3 pg (25.0-35.0); MCHC 33.6 g/dL (31.0-37.0); MCV 108.1 fL (80.0-100.0); Macrocytosis Moderate; Mean Platelet Volume 7.6; Monocytes # (A) 0.3 k/uL (0-1.0); Monocytes % (A) 6 %; Neutrophils # (A) 4.1 k/uL (1.3-7.7); Neutrophils % (A) 82 %; Platelet Count 219 k/uL (150-450); RBC 3.33 m/uL (4.30-5.90); RDW 13.9 % (11.5-15.5); WBC 5.1 k/uL (3.8-10.6)
[2021-01-06] MEDS ORDERED: FUROSEMIDE 10 MG TAB PO SCH (09:00)
[2021-01-06] MEDS: OXYBUTYNIN CHLORIDE 5 MG TAB PO SCH (09:14)
[2021-01-06] MEDS: ACETAMINOPHEN TAB 500 MG TAB PO SCH (09:14)
[2021-01-06] MEDS: FERROUS SULFATE 325 MG TAB PO SCH (09:14)
[2021-01-06] MEDS: diphenhydrAMINE 25 MG CAP PO SCH (09:14)
[2021-01-06] MEDS: MULTIVITAMINS, THERA 1 EACH TAB PO SCH (09:14)
[2021-01-06] MEDS: CALCIUM CARB-VIT D 500 MG-5 MCG TAB PO SCH (09:15)
[2021-01-06] MEDS: predniSONE 5 MG TAB PO SCH (09:15)
[2021-01-06] MEDS: ISOSORBIDE MONONITRATE ER 30 MG TAB.ER.24H PO SCH (09:15)
[2021-01-06] MEDS: carvediloL 3.125 MG TAB PO SCH (09:15)
[2021-01-06] MEDS: DOCUSATE 100 MG CAP PO SCH (09:15)
[2021-01-06] MEDS: lisinopriL 5 MG TAB PO SCH (09:15)
[2021-01-06 09:30] VITALS: BP 146/80; PULSE 62; TEMP 98.1
--- NOTE | 2021-01-06 10:57 | P.PN ---
Subjective Progress Note Date: 01/06/21 CHIEF COMPLAINT: GI bleed HISTORY OF PRESENT ILLNESS: Patient has had no further signs or symptoms of GI bleeding. His hemoglobin is 12.1. He denies any abdominal pain. No bowel movement through the night. His Eliquis and aspirin remain on hold. Afebrile. Patient evaluated by cardiology regarding chronic elevated troponins. PHYSICAL EXAM: VITAL SIGNS: Reviewed. GENERAL: Well-developed in no acute distress. HEENT: No sclera icterus. Extraocular movements grossly intact. Moist buccal mucosa. Head is atraumatic, normocephalic. ABDOMEN: Soft. Nondistended. Nontender. NEUROLOGIC: Alert and oriented. Cranial nerves II through XII grossly intact. ASSESSMENT: 1. Lower GI bleed with Bright red blood per rectum. 2. Epistaxis PLAN: -Recommend EGD and colonoscopy outpatient, possibly on 01/09/[address] Danielle -Patient can be discharge from surgical standpoint -Recommend to continue holding Eliquis Physician Medical Facilities Section Director note has been reviewed by physician. Signing provider agrees with the documented findings, assessment, and plan of care. Objective - Vital Signs Vital signs: Vital Signs Temp 98.1 F 01/06/21 09:15 Pulse 62 01/06/21 09:15 Resp 16 01/06/21 09:15 BP 146/80 01/06/21 09:15 Pulse Ox 99 01/06/21 09:15 Intake & Output 01/05/21 01/06/21 01/06/21 18:59 06:59 18:59 Intake Total 1680 778 Output Total 850 Balance 1680 -850 778 Weight 62.5 kg Intake: Oral 1680 778 Output: Urine 850 Other: # Voids 1 1 - Labs CBC & Chem 7: 01/06/21 06:30 01/04/21 17:24 Labs: Abnormal Lab Results - Last 24 Hours (Table) 01/06/21 Range/Units 06:30 RBC 3.33 L (4.30-5.90) m/uL Hgb 12.1 L (13.0-17.5) gm/dL Hct 36.0 L (39.0-53.0) % MCV 108.1 H (80.0-100.0) fL MCH 36.3 H (25.0-35.0) pg Lymphocytes # 0.4 L (1.0-4.8) k/uL
--- NOTE | 2021-01-06 12:22 | P.PN ---
Subjective Patient is a pleasant 84-year-old male with history of hypertension, hyperlipidemia, atrial flutter status post ablation, complete heart block status post dual-chamber permament pacemaker as well as His bundle pacing, coronary artery disease status post PCI to the proximal LAD, proximal circumflex and mid LAD in 07/18/[address] Boyle at [facility]. He follows with Dr. Arguello. We are consulted for elevated troponin. Patient states he lives with a caregiver. He states he was brought in because he had some blood in his sputum. Patient states that he had blood in his mouth, unable to quantify how much. Apparently patient may of had some bright red blood per rectum when he wipes for 1 day. He denies any chest pain, shortness of breath, lightheadedness, dizziness, palpitations, falls, cough, fever, chills, nausea, vomiting, abdominal pain, symptoms of orthopnea PND. DIAGNOSTICS: EKG shows ventricular paced rhythm with atrial sensed. Lexiscan stress test No evidence of reversible ischemia. Small fixed defect along the mid anterior wall most likely attenuation artifact. Labs, Troponin 0.08, 0.13, WBC 7.4, hemoglobin 12.3, platelets 232, sodium 137, potassium 4.2, BUN 35, serum creatinine 0.7, magnesium 2.1. Echocardiogram 10/15/20 EF of 5055% basal inferior LV wall hypokinetic, RV is mild to moderately enlarged, LA severely dilated, trace mitral regurgitation. 01/06/2021: Patient seen at bedside, no acute distress. Blood pressure 146/80, heart rate 62, afebrile, maintaining saturations on room air. He denies any bleeding in his urine or stool or sputum. He denies any chest pain or shortness of breath. Laboratory data review WBC 5.1, hemoglobin 12.1, platelets 219. PHYSICAL EXAMINATION CONSTITUTIONAL: No apparent distress. Frail, Pale. HEENT: Neck supple. No JVD. No carotid bruit. CHEST EXAMINATION: Lungs are clear to auscultation. No chest wall tenderness is noted on palpation or with deep breathing. HEART EXAMINATION: Regular rate and rhythm. S1, S2 heard. No murmurs, gallops or rub. ABDOMEN: Soft, nontender. Positive bowel sounds. EXTREMITIES: 2+ peripheral pulses, no lower extremity edema and no calf tenderness. NEUROLOGIC EXAMINATION: Patient is awake, alert oriented to person, place and year ASSESSMENT GI bleed Epitaxis Elevated troponins, patient without any chest pain, no evidence of ischemia on EKG. Patient appears to have chronically elevated troponin History of Hypertension Hyperlipidemia Atrial flutter status post ablation Complete heart block status post dual-chamber permament pacemaker as well as His bundle pacing Coronary artery disease status post PCI to the proximal LAD Proximal circumflex and mid LAD in 07/18/[address] Boyle at [facility]. Mild anemia Mild dementia PLAN -We will treat the patient medically at this time. Patient with recent Lexiscan stress test and Echocardiogram as noted above. -ELiquis and aspirin on hold due to GI bleed -Continue home cardiac medications atorvastatin, carvedilol, Imdur, lisinopril -Surgery consulted, Plan for EGD and colonoscopy on Saturday, as an outpatient. -From a cardiology perspective, no contraindication to undergo EGD/Colonoscopy at this time. -We will follow the patient as needed. Please reach out with further questions or concerns Objective - Vital Signs Vital signs: Vital Signs Temp 98.1 F 01/06/21 09:15 Pulse 62 01/06/21 09:15 Resp 16 01/06/21 09:15 BP 146/80 01/06/21 09:15 Pulse Ox 99 01/06/21 09:15 Intake & Output 01/05/21 01/06/21 01/06/21 18:59 06:59 18:59 Intake Total 1680 778 Output Total 850 Balance 1680 -850 778 Weight 62.5 kg Intake: Oral 1680 778 Output: Urine 850 Other: # Voids 1 1 - Labs CBC & Chem 7: 01/06/21 06:30 01/04/21 17:24 Labs: Abnormal Lab Results - Last 24 Hours (Table) 01/06/21 Range/Units 06:30 RBC 3.33 L (4.30-5.90) m/uL Hgb 12.1 L (13.0-17.5) gm/dL Hct 36.0 L (39.0-53.0) % MCV 108.1 H (80.0-100.0) fL MCH 36.3 H (25.0-35.0) pg Lymphocytes # 0.4 L (1.0-4.8) k/uL
--- NOTE | 2021-01-06 17:28 | P.DS ---
Providers Date of admission: 01/04/21 18:52 Expected date of discharge: 01/06/21 Attending physician: Hernando Thompson Consults: 01/04/21 18:44 Consult Physician Urgent Consulting Provider: Wilfrid Danielle Consult Reason/Comments: Lower GI bleed Do you want consulting provider notified?: Yes 01/05/21 10:34 Consult Physician Routine Consulting Provider: Palomo Miller Consult Reason/Comments: positive troponins Do you want consulting provider notified?: Already Contacted Primary care physician: Levon Ching MD Hospital Course: Chief Complaint: Bright red blood per rectum This is a 85-year-old patient, follows with . Chronic stable medical conditions include CHF, GERD, osteoarthritis, pacemaker, hypertension, hyperlipidemia flutter status post ablation, sick sinus syndrome with pacemaker CAD with stent. Patient presents to the ER if she was some nosebleed. Also some question of coughing up some blood. She also noticed some bright red blood per rectum when he wiped himself. There is no weakness no dizziness no lightheadedness. Patient not a very detailed historian. No nausea vomiting. Patient is on eliquis and 80 mg of aspirin. And Plavix. GI services are not available in the hospital. Surgery was consulted. Patient otherwise a fair appetite. There is rather comfortable. Patient's eliquis was held. Hemoglobin remained stable. No further episodes. January 06: Had a lengthy talk with the patient. Given his age patient is on aspirin and Plavix) eliquis. His had a stent not too long ago. At this point off for discussed with the patient decided to stop eliquis. Add PPI. If patient wishes she may have an outpatient further endoscopy. Patient is happy at this point not to get any further testing done. Was to keep things simple. He'll follow-up with his cutter apprentice hand. Dr. Danielle was informed. Discussion and discharge planning more than 35 minutes. Consultation: Dr. Matos from cardiology Dr. Danielle from general surgery Past medical history to include: CHF, GERD, osteoarthritis, pacemaker, hypertension, hyperlipidemia, atrial flutter status post ablation, sick sinus syndrome with a pacemaker, CAD with stent Social history: Lives alone. Does use a walker. 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 Family history: Reviewed, noncontributory to presentation Physical examination: VITAL SIGNS: 98.1, 62, 16, 146-80, 99% room air GENERAL: Sitting up comfortable EYES: Pupils equal. Conjunctiva normal. HEENT: External appearance of nose and ears normal, oral cavity grossly normal. Decreased hearing NECK: JVD not raised; masses not palpable. HEART: First and second heart sounds are normal; no edema. LUNGS: Respiratory rate normal; clear to auscultation. ABDOMEN: Soft, nontender, liver spleen not palpable, no masses palpable. PSYCH: Patient is able tonsil simple questionsl. INVESTIGATIONS, reviewed in the clinical context: January 06: Hemoglobin 12.1 WBC 7.4 hemoglobin 12.3 platelets 232 potassium 4.2 BUN 35 creatinine 0.77 Troponin I 0.082, 0.134 EKG tracing personally reviewed by me-ventricular paced rhythm Assessment and plan: -This patient is not a very detailed historian. Presence some epistaxis, questionable hemoptysis, and bright red blood per rectum when he wiped himself. Patient this morning did not remember the details of why he presented. Denies any abdominal pain. GI services not available the hospital. General surgery consulted. DC eliquis. Hemoglobin is remained stable. -Positive troponin. No cardiac symptoms. Likely from hemodynamic mismatch. -Congestive heart failure, from diastolic dysfunction. EF 50-55% -GERD PPI -Bladder outflow dysfunction Oxybutynin 2.5 mg twice a day -Essential hypertension Zestril 5 mg every 12 Coreg 3.125 mg twice a day -Coronary artery disease with history of stent On aspirin, Plavix,. Proximal circumflex and mid LAD stent by at [facility] in 07/18/2020 -History of atrial flutter fibrillation, status post ablation DC eliquis because of high risk of bleeding. -Primary osteoarthritis multiple joints bilateral Pain medications as needed -Chronic gait dysfunction uses a walker to baseline Fall precautions Disposition: Home Plan - Discharge Summary Discharge Rx Participant: Yes New Discharge Prescriptions: New Pantoprazole Sodium [Protonix] 40 mg PO BID #60 tab Continue lisinopriL [Zestril] 5 mg PO Q12H Acetaminophen Tab [Tylenol] 1,000 mg PO BID Atorvastatin Calcium [Lipitor] 40 mg PO HS Oxybutynin Chloride 2.5 mg PO BID Ferrous Sulfate [Feosol] 325 mg PO BID Isosorbide Mononitrate ER [Imdur] 30 mg PO DAILY predniSONE 5 mg PO BID Aspirin 81 mg PO DAILY Docusate [Colace] 100 mg PO BID diphenhydrAMINE [Benadryl] 50 mg PO BID Albuterol Sulfate [Ventolin HFA] 2 puff INHALATION RT-Q4H PRN PRN Reason: Shortness Of Breath Furosemide [Lasix] 10 mg PO Q72H Clopidogrel [Plavix] 75 mg PO DAILY Nitroglycerin Sl Tabs [Nitrostat] 0.4 mg SL Q5M PRN PRN Reason: Chest Pain carvediloL [Coreg] 3.125 mg PO BID Multivit-Min/FA/Lycopen/Lutein [Centrum Silver Tablet] 1 tab PO DAILY Abiraterone Acetate [Zytiga] 1,000 mg PO DAILY@1500 Discontinued Bebeto/D3/Mag11/Zinc/Insurance Salesman/Kaleb/Bor [Caltrate 600+D Plus Tablet] 1 tab PO DAILY Apixaban [Eliquis] 2.5 mg PO BID Discharge Medication List lisinopriL [Zestril] 5 mg PO Q12H 02/01/14 [History] Acetaminophen Tab [Tylenol] 1,000 mg PO BID 10/14/20 [History] Albuterol Sulfate [Ventolin HFA] 2 puff INHALATION RT-Q4H PRN 10/14/20 [History] Atorvastatin Calcium [Lipitor] 40 mg PO HS 10/14/20 [History] Clopidogrel [Plavix] 75 mg PO DAILY 10/14/20 [History] Ferrous Sulfate [Feosol] 325 mg PO BID 10/14/20 [History] Furosemide [Lasix] 10 mg PO Q72H 10/14/20 [History] Isosorbide Mononitrate ER [Imdur] 30 mg PO DAILY 10/14/20 [History] Oxybutynin Chloride 2.5 mg PO BID 10/14/20 [History] diphenhydrAMINE [Benadryl] 50 mg PO BID 10/14/20 [History] Abiraterone Acetate [Zytiga] 1,000 mg PO DAILY@1500 01/04/21 [History] Aspirin 81 mg PO DAILY 01/04/21 [History] Docusate [Colace] 100 mg PO BID 01/04/21 [History] Multivit-Min/FA/Lycopen/Lutein [Centrum Silver Tablet] 1 tab PO DAILY 01/04/21 [History] Nitroglycerin Sl Tabs [Nitrostat] 0.4 mg SL Q5M PRN 01/04/21 [History] carvediloL [Coreg] 3.125 mg PO BID 01/04/21 [History] predniSONE 5 mg PO BID 01/04/21 [History] Pantoprazole Sodium [Protonix] 40 mg PO BID #60 tab 01/06/21 [Rx] Follow up Appointment(s)/Referral(s): Rebecca Arguello MD [STAFF PHYSICIAN] - 01/13/21 3:30 pm Levon Ching MD [Primary Care Provider] - 01/10/21 2:30 pm Wilfrid Danielle MD [STAFF PHYSICIAN] - 01/09/21 Patient Instructions/Handouts: Gastrointestinal Bleeding (DC) Activity/Diet/Wound Care/Special Instructions: Float heels while laying in bed, to prevent breakdown. Heels were noted to be red on admission. Discharge Disposition: HOME SELF-CARE
== END 2021-01-06 12:13 | disposition home or self-care (01) ==
LOC: EC 16:29 → 3SCARD 18:52
PROVIDERS: ADMIT Hospitalist; ATTEND Hospitalist
DX: K92.2 Gastrointestinal hemorrhage, unspecified (principal); R04.0 Epistaxis; R77.8 Other specified abnormalities of plasma proteins; I11.0 Hypertensive heart disease with heart failure; I50.30 Unspecified diastolic (congestive) heart failure; M19.91 Primary osteoarthritis, unspecified site; K21.9 Gastro-esophageal reflux disease without esophagitis; I48.91 Unspecified atrial fibrillation; I48.92 Unspecified atrial flutter; I25.10 Atherosclerotic heart disease of native coronary artery without angina pectoris; E78.5 Hyperlipidemia, unspecified; I49.5 Sick sinus syndrome; I44.2 Atrioventricular block, complete; I44.39 Other atrioventricular block; R26.9 Unspecified abnormalities of gait and mobility; R19.7 Diarrhea, unspecified; D64.9 Anemia, unspecified; F03.90 Unspecified dementia, unspecified severity, without behavioral disturbance, psychotic disturbance, mood disturbance, and anxiety; Z95.5 Presence of coronary angioplasty implant and graft; Z95.0 Presence of cardiac pacemaker; Z79.01 Long term (current) use of anticoagulants; Z79.899 Other long term (current) drug therapy; Z79.82 Long term (current) use of aspirin; Z79.02 Long term (current) use of antithrombotics/antiplatelets; Z87.01 Personal history of pneumonia (recurrent); Z85.828 Personal history of other malignant neoplasm of skin; Z85.46 Personal history of malignant neoplasm of prostate; Z88.0 Allergy status to penicillin
CPT/HCPCS: 96360; 99285; 36415; 93005; 86900; 86901; 80053; 83735; 84484 ×2; 85025 ×2; 85610; 85730; 86850; G0378 ×3; J7512 ×2

== ENCOUNTER → 2021-01-23 | Day surgery (SDC) | payer MEDICARE, OTHER ==
[2021-01-20 08:47] VITALS: BMI 20.6
[~2021-01-23] MED LIST: LACTATED RINGERS 1,000 ML IV SCH
== END ==
LOC: ORWHC2ENDO 09:47
PROVIDERS: ATTEND Surgery
DX: Z53.9 Procedure and treatment not carried out, unspecified reason (principal)

== ENCOUNTER → 2021-03-03 | Outpatient (CLI) | payer MEDICARE, OTHER ==
[2021-03-04 10:48] LABS: Alternaria alternata IgE <0.10 kU/L; Aspergillus fumagatus IgE <0.10 kU/L; Birch IgE <0.10 kU/L; Cat Epith & Dander IgE <0.10 kU/L; Cladosporian herbarum IgE <0.10 kU/L; Dermato. farinae IgE <0.10 kU/L; Dog Dander IgE <0.10 kU/L; Elm IgE <0.10 kU/L; Maple (Box Elder) IgE <0.10 kU/L; Ragweed,Common IgE <0.10 kU/L
[2021-03-04 12:18] LABS: Oak IgE <0.10 kU/L
[2021-03-06 11:22] LABS: Meadow Fescue IgE <0.10 kU/L (<0.10); Meadow Fescue IgE Class CLASS 0; Meadow Grs (KY blue) IgE <0.10 kU/L (<0.10); Meadow Grs (KY blue) IgE Class CLASS 0; Penicillium notatum IgE Class CLASS 0; Sycamore(Mpl.Lf) IgE <0.10 kU/L (<0.10); Sycamore(Mpl.Lf) IgE Class CLASS 0; Timothy Grass IgE <0.10 kU/L (<0.10); Timothy Grass IgE Class CLASS 0; Willow Tree IgE <0.10 kU/L (<0.10)
[2021-03-06 11:23] LABS: Beech IgE <0.10 kU/L (<0.10); Cottonwood IgE <0.10 kU/L (<0.10); Goldenrod IgE <0.10 kU/L (<0.10); Goldenrod IgE Class CLASS 0; Lamb's Quarter IgE <0.10 kU/L (<0.10); Lamb's Quarter IgE Class CLASS 0; Ragweed, Giant IgE <0.10 kU/L (<0.10); Ragweed, Giant IgE Class CLASS 0; Sheep Sorrel IgE <0.10 kU/L (<0.10); Sheep Sorrel IgE Class CLASS 0
[2021-03-06 11:24] LABS: English Plantain IgE Class CLASS 0
== END | disposition home or self-care (01) ==
LOC: LABWHC1 15:51
PROVIDERS: ATTEND Internal Medicine Infectious Disease
DX: J30.5 Allergic rhinitis due to food (principal)
CPT/HCPCS: 36415; 86003

== ENCOUNTER 2021-04-13 08:46 | Day surgery (SDC) | payer MEDICARE, OTHER ==
[2021-04-04 10:28] VITALS: BMI 21.6
[2021-04-13 09:13] VITALS: RESP 16; TEMP 98.4
[2021-04-13] MEDS ORDERED: LIDOCAINE 1% INJ 10MG/ML (20 ML MDV) ONE (09:27)
[2021-04-13] MEDS ORDERED: PROPOFOL 10 MG/ML 20 ML VIAL IV ONE (09:27)
[2021-04-13 09:30] LABS: Glucose,Whole Blood 95 mg/dL (75-99)
--- NOTE | 2021-04-13 09:30 | P.GSHP ---
History of Present Illness H&P Date: 04/13/21 Chief Complaint: GI bleed This is a 85-year-old male presents today for EGD and colonoscopy. He's had issues with rectal bleeding Past Medical History Past Medical History: Cancer, Heart Failure, GERD/Reflux, GI Bleed, Osteoarthritis (OA), Pneumonia Additional Past Medical History / Comment(s): see Dr Robertson H&P, hx prostate and skin cancer, pneumonia 02/2014, caregiver states was having nose bleed 01/05,abd & rectal bleeding, wound clinic for wound care- facial area. 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 Wound care Past Anesthesia/Blood Transfusion Reactions: No Reported Reaction Additional Past Anesthesia/Blood Transfusion Reaction / Comment(s): unknown family hx from critical care rn Date of Last Stent Placement:: 2020 Type of Cardiac Device: Permanent Pacemaker Device Placement Date:: unknown Smoking Status: Never smoker - Past Family History Mother History Unknown: Yes Medications and Allergies Home Medications Medication Instructions Recorded Confirmed Type lisinopriL [Zestril] 5 mg PO Q12H 02/01/14 04/10/21 History Acetaminophen Tab [Tylenol] 1,000 mg PO BID 10/14/20 04/10/21 History Albuterol Sulfate [Ventolin HFA] 2 puff INHALATION RT-Q4H PRN 10/14/20 04/10/21 History Atorvastatin Calcium [Lipitor] 40 mg PO HS 10/14/20 04/10/21 History Clopidogrel [Plavix] 75 mg PO DAILY 10/14/20 04/10/21 History Ferrous Sulfate [Feosol] 325 mg PO BID 10/14/20 04/10/21 History Furosemide [Lasix] 10 mg PO Q72H 10/14/20 04/10/21 History Isosorbide Mononitrate ER [Imdur] 30 mg PO DAILY 10/14/20 04/10/21 History Oxybutynin Chloride 2.5 mg PO BID 10/14/20 04/10/21 History diphenhydrAMINE [Benadryl] 50 mg PO BID 10/14/20 04/10/21 History Aspirin 81 mg PO DAILY 01/04/21 04/10/21 History Docusate [Colace] 100 mg PO BID 01/04/21 04/10/21 History Multivit-Min/FA/Lycopen/Lutein 1 tab PO DAILY 01/04/21 04/10/21 History [Centrum Silver Tablet] Nitroglycerin Sl Tabs [Nitrostat] 0.4 mg SL Q5M PRN 01/04/21 04/10/21 History carvediloL [Coreg] 3.125 mg PO BID 01/04/21 04/10/21 History predniSONE 5 mg PO BID 01/04/21 04/10/21 History Pantoprazole Sodium [Protonix] 40 mg PO BID #60 tab 01/06/21 04/10/21 Rx Enzalutamide [Xtandi] 500 mg PO QID 04/04/21 04/10/21 History Allergies Allergy/AdvReac Type Severity Reaction Status Date / Time Penicillins Allergy Unknown Verified 04/13/21 09:02 Surgical - Exam Vital Signs Temp Pulse Resp BP Pulse Ox 98.4 F 67 16 181/77 98 04/13/21 09:11 04/13/21 09:11 04/13/21 09:11 04/13/21 09:11 04/13/21 09:11 - General well developed, well nourished, no distress - Eyes PERRL - ENT normal pinna - Neck no masses - Respiratory normal expansion - Cardiovascular Rhythm: regular - Abdomen Abdomen: soft, non tender Assessment and Plan Assessment: GI bleed. We'll perform EGD and colonoscopy.
--- NOTE | 2021-04-13 09:49 | P.OP ---
Date of Procedure: 04/13/21 Preoperative Diagnosis: GI bleed Postoperative Diagnosis: Antral gastritis Large hiatal hernia Procedure(s) Performed: EGD Colonoscopy Anesthesia: MAC Surgeon: Wilfrid Danielle Pathology: other (Antrum, esophagus) Condition: stable Disposition: PACU Description of Procedure: Patient's placed on the endoscopy table in the lateral position. He received IV sedation. The gastroscope placed oropharynx passed in the esophagus and stomach. Scope was placed through the pylorus. The first and second portion of the duodenum appeared normal. Scope was then brought back the antrum this. Mildly inflamed. A biopsies performed. Scope was then retroflexed and there was a moderate size hiatal hernia. The GE junction was at 38 cm the distal esophagus was mildly inflamed. The proximal esophagus appeared normal. The scope withdrawn for patient. Rectal exam was performed. This revealed no abnormalities. Flexible colonoscope was then placed patient anus. Scope could not be passed beyond the sigmoid colon secondary to tortuosity of the sigmoid colon. This was withdrawn. Pediatric scope was then attempted to be placed. However this could not pass as well. This point scope withdrawn. Patient was scheduled for a barium enema.
[2021-04-13 10:20] VITALS: PULSE 60
[2021-04-13 11:44] VITALS: BP 169/75
--- NOTE | 2021-04-15 08:42 | XR ---
EXAMINATION TYPE: XR abdomen 1V DATE OF EXAM: 04/13/2021 COMPARISON: NONE HISTORY: Pain TECHNIQUE: Single supine KUB image of the abdomen is obtained FINDINGS: Small bowel demonstrates no evidence for dilatation or air fluid levels. Gas and fecal material is seen in non-distended colon. No convincing evidence for pneumoperitoneum. No unusual calcifications. The lung bases are clear. The osseous structures are intact. IMPRESSION: 1. Moderate colonic air. Patient will be rescheduled for barium enema following day.
== END 2021-04-13 13:31 | disposition home or self-care (01) ==
LOC: ORWHC2ENDO 08:46
PROVIDERS: ATTEND Surgery
DX: K29.70 Gastritis, unspecified, without bleeding (principal); K44.9 Diaphragmatic hernia without obstruction or gangrene; I50.9 Heart failure, unspecified; K21.9 Gastro-esophageal reflux disease without esophagitis
CPT/HCPCS: 43239; 45330; 88305; 74018; J2001; J2704

== ENCOUNTER → 2021-04-14 | Outpatient (CLI) | payer MEDICARE, OTHER ==
--- NOTE | 2021-04-16 21:04 | FL ---
EXAMINATION TYPE: FL barium enema w air contrast DATE OF EXAM: 04/14/2021 COMPARISON: CT 08/29/2020 HISTORY: 85-year-old male incomplete colonoscopy TECHNIQUE: A double contrast barium enema study is performed. A total of 5 minutes 13 seconds of fl uoroscopic time was utilized during procedure and 71 images obtained. FINDINGS: Battery Assembler Plastic view of the abdomen shows overall non-obstructive bowel gas pattern. A left hip hemiarthroplast y is present. A couple metal clips, probably brachytherapy seeds in the lower midline pelvis. Right v entricular pacer lead partially visualized. Punctate calcifications likely relating to chronic pancre atitis. Some residual air remains throughout the colon. The exam was markedly difficult due to patient's inability to weight bear and position on his own. Th e patient also began to experience pain while the colon was filled with contrast. We were unable to a dequately empty the colon of access contrast due to these limitations. This in combination with the r edundant splenic flexure of the colon, redundant sigmoid colon, and extensive difficulty in positioni ng the patient causes significant limitations to the exam. There is some diverticular change along the proximal to mid sigmoid colon. On a couple images, there is persistent rounded just under 1 cm filling defect along the mid sigmoid colon (refer to image 54, 55, and 56). No obvious annular constricting mass is identified. IMPRESSION: 1. Markedly limited exam as the patient was unable to bear weight or adequately position for the diff erent views. 2. Unable to exclude a sessile polyp measuring just under 1 cm along the mid sigmoid colon. 3. Mild diverticulosis along the proximal to mid sigmoid. 4. No obvious annular constricting lesion identified. Consider CT colonoscopy in the future if conven tional colonoscopy is unsuccessful and given the above-mentioned limitations for the barium enema.
== END | disposition home or self-care (01) ==
LOC: RADFLMAIN 09:47
PROVIDERS: ATTEND Surgery
DX: K57.30 Diverticulosis of large intestine without perforation or abscess without bleeding (principal)
CPT/HCPCS: 74280